=== PATIENT | female | born 1940 | race Caucasian/White ===

== ENCOUNTER 2017-12-20 15:05 | Inpatient (IN) | payer OTHER ==
[~2017-12-20] VITALS: Ht 162.6 cm; Wt 66.0 kg
[2017-12-20 22:03] VITALS: BP 185/81; PULSE 90; TEMP 36.5; O2SAT 97; Ht 162.6 cm; Wt 66.0 kg
[2017-12-20] MEDS ORDERED: AMLO10TA3 PO (22:43)
[2017-12-20] MEDS ORDERED: TIMO-31 OP (22:43)
[2017-12-20] MEDS ORDERED: ACET-1256 PO (22:43)
[2017-12-20] MEDS ORDERED: ARTI1SOL11 (22:43)
[2017-12-20] MEDS ORDERED: ONDANSETRON INJ 2 MG/ML 2 ML VIAL IV PRN (23:00)
[2017-12-20] MEDS ORDERED: ACETAMINOPHEN 325 MG TAB PO PRN (23:00)
[2017-12-20] MEDS ORDERED: PATIENT'S ALLERGY INFO NEEDS ENTERED SCH (23:15)
--- NOTE | 2017-12-20 23:35 | History and Physical ---
History & Physical Date & Time of Service: Dec 20, 2017 at 22:57 Chief Complaint: Progressive Symptoms For Possible Stroke Primary Care Physician: Dash Fernández M.D. History of Present Illness Source: patient, family The patient is a 77-year-old female with a past medical history of hypertension , cancer of the left eye, and glaucoma that presents a transfer from [facility] with a 3-day history of numbness and tingling. The patient states that evening before going to sleep she had tingling at the tips of the second to fifth digits of the left hand. She was awoken from her sleep by her dog that evening at which point she all of a sudden noticed she was also having tingling over her left wrist at the palmar side. Thursday morning she went to the emergency department where she was evaluated with a CT of the head and neck. Her CT head showed no acute intracranial abnormalities, and the CT of the neck danish some degenerative disc changes in addition to canal narrowing at the C5-C6 region. The patient was discharged from the ED with instruction to follow-up with her PCP. The patient states that today her numbness and tingling began to spread across her chest on the left side below her breast and down her left leg. She was reevaluated at [facility] with a CT Head that showed no acute intracranial abnormalities and was transferred to [facility]. 6 weeks ago the patient was treated for shingles along the left side that had an eruption at the left flank region although presented with intermittent burning. The patient was treated with a course of valacyclovir and given a prescription for Lyrica. When beginning the Lyrica the patient had an episode of vertigo and discontinued it thereafter. She states that she has been having no numbness that is worse over the area that had a shingles outbreak. This numbness is descending down the left side of her trunk to the hip. She was also having some mild numbness that goes down her left leg and is worse over the left knee. She denies any tingling at this area though and it is only numbness. The patient denies any Chest pain, shortness of breath, headache, vision changes, photophobia, aura, weakness, fatigue, or any other acute symptoms. Past Medical/Surgical History Medical Problems: (1) Left sided numbness (2) Numbness and tingling of left upper and lower extremity Family History Noncontributory Social History Smoking Status: Never Smoker Smokeless Tobacco Use: No Alcohol Use: socially Drug Use: none Occupational Status: retired Immunizations History of Influenza Vaccine: Unknown History of Tetanus Vaccine?: Unknown History of Pneumococcal: Unknown History of Hepatitis B Vaccine: Unknown Allergies Coded Allergies: Latex1 -Allergic Contact Dermititis (Verified Allergy, Intermediate, RASH , 12/20/17) Penicillins (Verified Allergy, Unknown, RASH, 12/20/17) Since a child, is unsure. Thinks it may have been a rash. Uncoded Allergies: "Steroids" (Adverse Reaction, Severe, ANAPHYLAXIS, 12/20/17) Causes increase eye pressure Home Medications Scheduled Acetaminophen (Tylenol), 2 TAB PO Q6 Amlodipine (Norvasc), 10 MG PO DAILY Timolol Maleate (Ophth) (Timoptic), 1 DROPS OP BID Miscellaneous Medications Artificial Tear Solution (Genteal Tears Liquid Drop 0.1-0.2-0.3 %) Review of Systems Constitutional: No fever, No chills, No sweats, No weight loss, No weakness Eyes: No worsening of vision, No redness, No diplopia Respiratory: No cough, No sputum, No wheezing, No shortness of breath, No dyspnea on exertion Cardiovascular: No chest pain, No edema, No palpitations Abdomen: No pain, No nausea, No vomiting, No diarrhea, No constipation Genitourinary - Female: No dysuria, No urinary frequency, No urinary urgency Neurologic: + numbness/tingling, No memory loss, No paralysis, No weakness, No vertigo, No balance problems Endocrine: No fatigue, No excessive thirst Integumentary: + rash (Left flank, shingles lesions that have dried), No itch Physical Exam Vital Signs Date Time Temp Pulse Resp B/P (MAP) Pulse Ox O2 Delivery O2 Flow Rate FiO2 12/20/17 22:03 36.5 90 16 185/81 97 Room Air General Appearance: WD/WN, no apparent distress Head: normocephalic, atraumatic Eyes: normal inspection, sclerae normal Neck: supple, no carotid bruits Respiratory/Chest: chest non-tender, lungs clear, normal breath sounds Cardiovascular: regular rate, rhythm, no edema, no gallop Abdomen/GI: normal bowel sounds, non tender, soft Back: normal inspection, no CVA tenderness, + pertinent finding (Left flank dried eruptions with no vesicles. 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, no motor/sensory deficits, alert, normal mood/affect, normal reflexes, oriented x 3, + pertinent finding (Normal Field of View, PERRL, CN 2-12 grossly intact, Strength 5/5 in UE and LE, Sensation to light touch and temperature grossly intact, finger to nose and heel to sepulveda grossly normal, vision intact) Impression Assessment and Plan The patient is a 77-year-old female with a past medical history of hypertension , cancer of the left eye, and glaucoma that presents a transfer from [facility] with a 3-day history of numbness and tingling Left Sided Numbness and Tingling - CT Head: No acute intracranial abnormalities - MRI Brain Combo ordered -Assess circulation with either CTA or MRA - Neurology consult - Possibly secondary to degenerative disc changes in the neck seen on CT Neck performed at [facility] - CBC, BMP, Lyme, and Troponin labs ordered Hypertension - Continue home Amlodipine Glaucoma - Continue home Timolol drops DVT - SCDs Code Status - Full Resuscitation Attending addendum: I have physically seen this patient, have supervised the medical residents activities, and agree with the H&P unless as otherwise noted. Assessment and Plan: Progressive left-sided numbness and tingling. The patient will be admitted to telemetry for serial cardiac enzymes, serial EKG's, cardiac rhythm monitoring and a 2-D echocardiogram with Dopplers.. CT head negative for acute event. Follow ischemic stroke/TIA protocol. Order MRI brain, MRA head and neck. Consult PT/OT/speech/neurology. Hypertension--continue amlodipine with hold parameters. Glaucoma continue timolol. Remainder of orders and notations as noted above. Advanced Directives Existing Living Will: Yes Existing Power of Flake Miller Helper: Yes Resuscitation Status Full Code VTE Prophylaxis Will order VTE Prophylaxis: Yes Social Service Consult None Apply Resident Tracking Resident Involvement: Resident Care Provided Care Provided: Adult Hospital Medicine
[2017-12-20 23:40] VITALS: BP 150/74; PULSE 87; TEMP 36.5; O2SAT 97
[2017-12-20 23:49] LABS: BASO % 0.2 %; BASO ABS # 0.02 K/uL (0-0.2); EOS % 2.9 %; EOS ABS # 0.26 K/uL (0-0.5); HEMOGLOBIN 14.4 g/dL (12.0-16.0); IG# 0.01 K/uL (0.00-0.02); LYMPH % 16.1 %; LYMPH ABS # 1.45 K/uL (1.2-3.4); MEAN CELL VOLUME 86.4 fL (80-100); MEAN CORPUSCULAR HEMOGLOBIN 28.3 pg (25-34); MEAN CORPUSCULAR HGB CONC 32.7 g/dl (32-36); MEAN PLATELET VOLUME 9.5 fL (7.4-10.4); MONO % 10.2 %; MONO ABS # 0.92 K/uL (0.11-0.59); NEUT % 70.5 %; NEUT ABS # 6.33 K/uL (1.4-6.5); PLATELET COUNT 210 K/uL (130-400); RED CELL DISTRIBUTION WIDTH CV 13.9 % (11.5-14.5); RED CELL DISTRIBUTION WIDTH SD 43.6 fL (36.4-46.3); WHITE BLOOD COUNT 8.99 K/uL (4.8-10.8)
[2017-12-21] VITALS (7 sets, daily range): BP systolic 107–155; BP diastolic 65–88; PULSE 76–87; TEMP 36.6–37; O2SAT 92–98
[2017-12-21 00:14] LABS: BLOOD UREA NITROGEN 12 mg/dl (7-18); CALCIUM 8.9 mg/dl (8.5-10.1); CARBON DIOXIDE 31 mmol/L (21-32); CREATININE 0.66 mg/dl (0.60-1.20); GLUCOSE 146 mg/dl (70-99); POTASSIUM 3.1 mmol/L (3.5-5.1); SODIUM 141 mmol/L (136-145)
[2017-12-21] MEDS ORDERED: POTASSIUM CHLORIDE 20 MEQ TABCR PO STA (00:24)
[2017-12-21] MEDS ORDERED: LORAZEPAM 1 MG TAB PO SCH (05:45)
[2017-12-21] MEDS ORDERED: LORAZEPAM 1 MG TAB ONE (05:47)
--- NOTE | 2017-12-21 06:51 | Family Medicine Progress Note ---
Progress Note Date of Service Dec 21, 2017. Subjective Pt evaluation today including: conversation w/ patient, physical exam, chart review, lab review, review of studies Pain: None PO Intake: Good Mrs. 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 She was treated 6 weeks ago for Shingles with Valcyclovir & Lyrica. She reports she feels well today. Her numbness is 'like you slapped something hard and feels kind of weird after.' She is experiencing numbness in the L flank , L foot, L leg, and L hand. Her arm is not numb today. Her R side is unaffected. She denies any loss of strength, denies pain. She has a well healing rash on her L flank from her recent singles episode, but notes that this area feels different than the numbness she is experiencing in her hand, L flank, and L leg. She is eating well today. She is having coffee at time of exam. No nausea/ vomiting. Denies fever, chills, rash, recent illness. She endorses some areas of focal blindness in her L field of view since her orbit surgery. She endorses horizontal diplopia on L gaze. Some decreased visual acuity unchanged since her surgery. No other change in sensation. Constitutional: No fever, No chills, No weakness, No fatigue Eyes: + worsening of vision, + diplopia, No eye pain Respiratory: No cough, No shortness of breath Cardiovascular: No chest pain Musculoskeletal: No joint pain, No muscle pain, No swelling Neurologic: + numbness/tingling, + vertigo, No paralysis, No weakness, No balance problems Skin: No rash, No itch Medications Current Inpatient Medications Medications (Trade) Dose Ordered Sig/Agueda Route Start Time Stop Time Status Last Admin Dose Admin Acetaminophen (Tylenol Tab) 650 mg Q4H PRN PO 12/20/17 23:00 01/19/18 22:59 Ondansetron HCl (Zofran Inj) 4 mg Q6H PRN IV 12/20/17 23:00 01/19/18 22:59 Amlodipine Besylate (Norvasc Tab) 10 mg DAILY PO 8/13/18 09:00 01/20/18 08:59 12/21/17 08:12 10 MG Timolol Maleate (Timoptic 0.5% Oph Soln) 1 drops BID OP 12/21/17 09:00 01/20/18 08:59 12/21/17 08:12 1 DROPS Lorazepam (Ativan Tab) 1 mg TODAY@0545 PO 12/21/17 05:45 12/21/17 12:00 Objective Vital Signs Date Time Temp Pulse Resp B/P (MAP) Pulse Ox O2 Delivery O2 Flow Rate FiO2 12/21/17 08:00 Room Air 12/21/17 07:03 36.6 76 18 121/65 (83) 96 Room Air 12/21/17 04:06 36.6 87 18 123/78 (93) 97 Room Air 12/21/17 04:00 Room Air 12/20/17 23:40 36.5 87 18 150/74 (99) 97 Room Air 12/20/17 22:03 36.5 90 16 185/81 97 Room Air Physical Exam General Appearance: no apparent distress Eyes: + pertinent finding (Eyes: Pupils unequal, L ~3mm R ~2mm, equally responsive to light and accommodation. Mild L esotropia with accentuates with leftward gaze. EoM intact without nystagmus. Sclera normal without injection and jaundice.) Neck: supple, no JVD, no carotid bruits, trachea midline Respiratory/Chest: chest non-tender, lungs clear, normal breath sounds, no respiratory distress, no accessory muscle use Cardiovascular: regular rate, rhythm, no gallop, no JVD, no murmur Abdomen: normal bowel sounds, non tender, soft Extremities: normal range of motion, normal inspection Neurologic/Psychiatric: + pertinent finding (Elbow flexion/extension, knee flexion/extension, plantarflexion, dorsiflexion, hip flexion, shoulder flexion/ extension/internal rotation/external rotation 5/5 strength. Sensation intact to soft touch via bristle brush in all distal extremities although qualitatively different in the L leg, L hand, and L lower torsa with overall L<R per pt.) Skin: warm/dry, + rash, + pertinent finding (Skin: Well healing erythematous rash present on L flank in a dermatomal distribution, no crust, scale, vesicles , or lesions present. ) Notes: Laboratory Results 12/21/17 09:41 Red Blood Count 5.37, Mean Corpuscular Volume 86.8, Mean Corpuscular Hemoglobin 28.5, Mean Corpuscular Hemoglobin Concent 32.8, Mean Platelet Volume 9.8, Neutrophils (%) (Auto) 73.1, Lymphocytes (%) (Auto) 16.2, Monocytes (%) (Auto) 8.1, Eosinophils (%) (Auto) 2.1, Basophils (%) (Auto) 0.4, Neutrophils # (Auto) 5.88, Lymphocytes # (Auto) 1.30, Monocytes # (Auto) 0.65, Eosinophils # (Auto) 0.17, Basophils # (Auto) 0.03 12/21/17 09:41 Test 12/20/17 23:33 12/21/17 09:41 12/21/17 09:46 Troponin I < 0.015 ng/ml (0-0.045) Lyme Disease IgG Antibody NEG (NEG) Lyme Disease IgM Antibody NEG (NEG) White Blood Count 8.04 K/uL (4.8-10.8) Red Blood Count 5.37 M/uL (4.2-5.4) Hemoglobin 15.3 g/dL (12.0-16.0) Hematocrit 46.6 % (37-47) Mean Corpuscular Volume 86.8 fL (80-100) Mean Corpuscular Hemoglobin 28.5 pg (25-34) Mean Corpuscular Hemoglobin Concent 32.8 g/dl (32-36) Platelet Count 237 K/uL (130-400) Mean Platelet Volume 9.8 fL (7.4-10.4) Neutrophils (%) (Auto) 73.1 % Lymphocytes (%) (Auto) 16.2 % Monocytes (%) (Auto) 8.1 % Eosinophils (%) (Auto) 2.1 % Basophils (%) (Auto) 0.4 % Neutrophils # (Auto) 5.88 K/uL (1.4-6.5) Lymphocytes # (Auto) 1.30 K/uL (1.2-3.4) Monocytes # (Auto) 0.65 K/uL (0.11-0.59) Eosinophils # (Auto) 0.17 K/uL (0-0.5) Basophils # (Auto) 0.03 K/uL (0-0.2) RDW Standard Deviation 44.5 fL (36.4-46.3) RDW Coefficient of Variation 14.0 % (11.5-14.5) Immature Granulocyte % (Auto) 0.1 % Immature Granulocyte # (Auto) 0.01 K/uL (0.00-0.02) Anion Gap 7.0 mmol/L (3-11) Est Creatinine Clear Calc Drug Dose 69.9 ml/min Estimated GFR () 99.9 Estimated GFR (Non- 86.2 BUN/Creatinine Ratio 25.7 (10-20) Calcium Level 9.3 mg/dl (8.5-10.1) Erythrocyte Sedimentation Rate 18 mm/hr (0-21) Estimated Average Glucose 123 mg/dl Hemoglobin A1c 5.9 % (4.5-5.6) Vitamin B12 Level 1131 pg/mL (211-911) Thyroid Stimulating Hormone (TSH) 1.480 uIu/ml (0.300-4.500) Assessment and Plan Ashlyn Ag is a 77yo F with PMHx of shingles admitted for L sided parasthesia of the hand, arm, lower left flank, and entire lower left extremity. Her recent CT and MRI-Brain showed no acute pathology. On physical exam she is able to discriminate soft touch, temperature, and sharp touch in the affected area with her eyes closed although she reports the her sensation in the L vs R is qualitatively different. L Parasthesias - CT-H and MRI-B revealing for no acute pathology. - Some spinal narrowing at ~C4 on [facility] in [facility] - Lyme negative - Troponin negative - B12, CBC, A1C, TSH, ESR, fasting glucose ordered - MRI-C spine w & w/o contrast ordered. Will not be able to be done until at least 12 hours after MRI-B due to residual contrast. Scheduled for tonight after 1900hrs. - If the above tests are normal, pursue EMG and nerve conduction studies on an outpatient basis per neuro recommendation. Appreciate recs. Glaucoma - [employer]ESS [employer] Timolol drops Hypertension - [employer]ESS [employer] Amlodipine 10mg PO daily DVT Prophylaxsis - SCDs Code Status: Full Disposition: Transfer to Med-Surg. Resident Physician Supervision Note: I was present with Dr. Addison during the history and exam. I discussed the case with the resident and agree with the findings and plan as documented in the note. I also discussed the case with neurology. Documented By: Yoel Antoine Continued [facility] stay due to: other (MRI) Discharge planning: home Resident Tracking Resident Involvement: Resident Care Provided Care Provided: Adult Hospital Medicine
--- NOTE | 2017-12-21 07:16 | DIAGNOSTIC IMAGING REPORT ---
BRAIN COMBO CLINICAL HISTORY: 77 years-old Female presenting with Left sided numbness and tingling since , vertigo for 4 weeks, ongoing shingles. TECHNIQUE: Multisequence, multiplanar MR imaging of the brain was performed before and after the administration of intravenous contrast. IV contrast: 6.5 mL of Gadavist. COMPARISON: Noncontrast CT head performed on 12/20/2017 and outside hospital. FINDINGS: Localizer images: Unremarkable. Ventricles and sulci normal in size. Periventricular and subcortical white matter T2/FLAIR hyperintensity, nonspecific but likely indicative of chronic small vessel ischemic change. No mass effect or midline shift. No restricted diffusion to suggest acute ischemia. No hemorrhage. No extra-axial fluid collection. Increased signal intensity within the left internal jugular vein and sigmoid sinus on T2-weighted imaging, most likely slow flow as contrast is noted within this vein on postcontrast imaging. Remainder of the T2 skull base flow voids preserved. No abnormal parenchymal enhancement. Bone marrow signal intensity within the calvarium within normal limits. Trace fluid in right mastoid air cells. T2 hypointense, T1 isointense peripheral lobulation of the inferior lateral left lobe (series 6 image 10; series 8 image 3; series 7 image 10). This may minimally enhance. IMPRESSION: 1. No acute intracranial pathology. No abnormal enhancement. 2. Chronic small vessel ischemic change. 3. Indeterminate left globe lobular peripheral soft tissue. This may represent choroidal or retinal detachment, with less likely diagnostic considerations including metastases. Direct for endoscopic visualization and potential contrast-enhanced MR of the orbit to be considered. Primary care physician (PCP) and/or surgical follow-up recommended until clinical, surgical, or pathologic diagnosis established. The report will be called/faxed according to standard departmental protocol. Electronically signed by: Vikram Araiza M.D. 12/21/2017 7:14 AM Dictated Date/Time: 12/21/2017 6:57 AM
[2017-12-21] MEDS: AMLODIPINE BESYLATE 5 MG TAB PO SCH (08:12)
[2017-12-21] MEDS: TIMOLOL MALEATE 0.5% OP SOLN 5 ML BTL OP SCH ×2 (08:12→20:32)
--- NOTE | 2017-12-21 08:47 | Neurology Consultation ---
Neurology Consultation Date of Consultation: Dec 21, 2017. Attending Physician: Brett Moya M.D. Primary Care Physician: Dash Fernández M.D. Reason for Consultation: Patient is a 77-year-old, was asked to see the request of doctors Dev and Nita, for neurologic evaluation regarding progressive numbness. History of Present Illness Source: patient, caregiver, hospital records This patient has a longstanding history of hypertension. She did have some diabetes in the past and was on Mestinon but is not on this currently in claims her sugar is doing well. She has no heart issues or previous stroke. About 6 weeks ago or so she had shingles along her left flank in the strip from the lumbar spine around to the midline on the abdomen. The vesicles were small and in patches/groups long that strip. She was put on valacyclovir. She had some burning pain particularly if touched in the areas of the patches with some numbness but this is much better. She tried Lyrica but gave her vertigo so she stopped it. She is on no medication currently for this mild post herpetic neuralgia and numbness and is doing fine. Is getting progressively less over time. In the evening of December 17, she noted some tingling in the 5th and 4th fingers of the left hand she thought she may be had strained or irritated this and went to bed. When she woke up on December 18, the left hand issue was still present and by the end of the day it involved the ulnar palm to the wrist. No also spread to the 3rd and 2nd fingers. By the end of the day she also noted numbness (without pain or tingling) in the left leg on the top of the thigh and inner portion of the leg. It went from the hip to just below the knee. That afternoon she went to the [facility] emergency room and a CT scan of the head was unremarkable. CT scan of the cervical spine shows some degenerative changes particularly at C5-6. Patient had no radicular symptoms or neck pain. She had no low back pain. She was sent home from the emergency room and by that evening she noted numbness from her knee down to the top of her left foot. On December 19, she had no progression and had the same symptoms as when she went to bed the evening before. When she woke up on December 20 she felt that there was some dysesthesias along her ulnar forearm and felt that she had to go to the emergency room. She was then evaluated at [facility] and another CT scan of the head was unremarkable. She noted numbness along the left flank. She was transferred to our institution and at 10:03 p.m. zero three hours, temperature was 36.5, pulse 90 and regular, respiratory rate 16, blood pressure 185/81, and O2 saturation 97%. Her neurologic examination was described as unremarkable although she had some subjective numbness in the left arm and leg. CBC was unremarkable Chem profile revealed a mildly low potassium and a glucose of 146. Lyme antibody titer was unremarkable. MRI of the brain revealed mild to moderate old small vessel ischemic changes of a scattered nonspecific nature. There was some mild generalized atrophy as well. There was some soft tissue findings in the left globe. This did not enhance. 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 Apparently she saw Dr. Boston in [place] who put in a radioactive patch for 3 days and then remove the patch. They feel that this choroidal melanoma is getting smaller. She is followed closely by Ophthalmology. Today, she feels no worse than yesterday and has no new issues. She does not feel ill and has no spine pain, balance issues, incontinence of urine, confusion , fatigue, speech issues, or new vision problems. 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 She does not consume alcohol. She had many jobs over the years but worked at [employer] on [address] [place] for 8 years and then [employer] bearings. She retired in 1998. She has 4 children ranging in age from 60-46, 11 grandchildren, and 8 great- grandchildren Smoking Status: Never smoker Smokeless Tobacco Use: No Alcohol Use: socially Drug Use: none Marital Status: Housing Status: lives alone Occupation Status: retired Allergies Coded Allergies: Latex1 -Allergic Contact Dermititis (Verified Allergy, Intermediate, RASH , 12/20/17) Penicillins (Verified Allergy, Unknown, RASH, 12/20/17) Since a child, is unsure. Thinks it may have been a rash. Uncoded Allergies: "Steroids" (Adverse Reaction, Severe, ANAPHYLAXIS, 12/20/17) Causes increase eye pressure Current Inpatient Medications Current Inpatient Medications Medications (Trade) Dose Ordered Sig/Agueda Route Start Time Stop Time Status Last Admin Dose Admin Acetaminophen (Tylenol Tab) 650 mg Q4H PRN PO 12/20/17 23:00 01/19/18 22:59 Ondansetron HCl (Zofran Inj) 4 mg Q6H PRN IV 12/20/17 23:00 01/19/18 22:59 Amlodipine Besylate (Norvasc Tab) 10 mg DAILY PO 12/21/17 09:00 01/20/18 08:59 Timolol Maleate (Timoptic 0.5% Oph Soln) 1 drops BID OP 12/21/17 09:00 01/20/18 08:59 Lorazepam (Ativan Tab) 1 mg TODAY@0545 PO 12/21/17 05:45 12/21/17 12:00 Review of Systems Constitutional: No fatigue Eyes: No worsening of vision, No diplopia ENT: No sore throat, No trouble swallowing Respiratory: No cough, No shortness of breath Cardiovascular: No chest pain, No palpitations Abdomen: No pain, No nausea Musculoskeletal: + joint pain, No muscle pain Genitourinary - Female: No dysuria, No urinary incontinence Neurologic: + numbness/tingling, No memory loss, No weakness, No vertigo, No balance problems Psychiatric: No depression symptoms, No anxiety Endocrine: No fatigue Hematologic / Lymphatic: No abnormal bleeding/bruising Integumentary: No rash Allergic / Immunologic: No hives Physical Exam Vital Signs (Past 24 Hrs): Date Time Temp Pulse Resp B/P (MAP) Pulse Ox O2 Delivery O2 Flow Rate FiO2 12/21/17 07:03 36.6 76 18 121/65 (83) 96 Room Air 12/21/17 04:06 36.6 87 18 123/78 (93) 97 Room Air 12/21/17 04:00 Room Air 12/20/17 23:40 36.5 87 18 150/74 (99) 97 Room Air 12/20/17 22:03 36.5 90 16 185/81 97 Room Air Patient is right-handed. The patient is awake and alert. Speech is normal without aphasia or dysarthria. Mentation and thought processes are intact with full orientation and normal fund of knowledge. Mood and affect are normal and appropriate. Appearance and grooming are normal. Long and short-term memory are intact. The discs are sharp with positive venous pulsations. There are no exudates, hemorrhages, or blood vessel changes seen. Pupils are 4mm bilaterally and reactive to light. Extraocular eye muscles are intact without nystagmus. Visual acuity and visual rice seem normal grossly to confrontation. There are no deficits to sensation of the face bilaterally. Corneal reflexes are positive bilaterally. Facial strength and symmetry is normal bilaterally. Hearing seems intact grossly to voice and finger rub. Palate moves well without asymmetry. There is normal sternocleidomastoid and trapezius strength bilaterally. Tongue is midline with good strength bilaterally. Neck is with full range of motion without discomfort. There are no cervical bruits. There are no cranial or ocular bruits. Heart is without murmur. Cervical, thoracic, and lumbar spine are nontender to palpation. Gait is normal. There is good arm swing, turn, stance, and balance. With outstretched arms there is no drift. There are no resting tremors. There is no ataxia with [id number] testing. The patient has very mild right greater than left action tremor bilaterally. There is good facility in the hands. There are no abnormal involuntary movements noted. Motor strength is 5/5 diffusely in the arms bilaterally including deltoids, biceps, brachioradialis, wrist flexors and extensors, director home, and intrinsic hand muscles. Motor strength is 5/5 diffusely in the legs bilaterally including hip flexors, quadriceps, hamstring, gastrocnemius, tibialis anterior, tibialis posterior, and peroneii muscles bilaterally. Toe extensors are normal and there is good bulk in the extensor digitorum brevis muscle bilaterally. The limbs have good tone without rigidity or spasticity, and there is no atrophy noted. Muscle bulk is normal, there is no tenderness, no myotonia noted to percussion, and no fasciculations seen. Sensory examination reveals some decreased sensation in the hand including all digits except the thumb on the left. This extends to the palm dorsally and ventrally. There is some dysesthesias along the ulnar forearm as well. The upper arm is spared. There is some numbness along the left trunk laterally and the left leg particularly medially and on the thigh. The left foot has some numbness. The right side is spared. Reflexes are 1/4 in the biceps, triceps, and quadriceps tendons bilaterally. Brachioradialis and Achilles tendon reflexes are absent bilaterally. Toes are downgoing with plantar stimulation bilaterally. Peripheral pulses are present and of normal quality distally in all four limbs. There is no peripheral edema noted. Laboratory Results Past 24 Hours: 12/20/17 23:33 Red Blood Count 5.09, Mean Corpuscular Volume 86.4, Mean Corpuscular Hemoglobin 28.3, Mean Corpuscular Hemoglobin Concent 32.7, Mean Platelet Volume 9.5, Neutrophils (%) (Auto) 70.5, Lymphocytes (%) (Auto) 16.1, Monocytes (%) (Auto) 10.2, Eosinophils (%) (Auto) 2.9, Basophils (%) (Auto) 0.2, Neutrophils # (Auto ) 6.33, Lymphocytes # (Auto) 1.45, Monocytes # (Auto) 0.92, Eosinophils # (Auto ) 0.26, Basophils # (Auto) 0.02 12/20/17 23:33 Test 12/20/17 23:33 White Blood Count 8.99 K/uL (4.8-10.8) Red Blood Count 5.09 M/uL (4.2-5.4) Hemoglobin 14.4 g/dL (12.0-16.0) Hematocrit 44.0 % (37-47) Mean Corpuscular Volume 86.4 fL (80-100) Mean Corpuscular Hemoglobin 28.3 pg (25-34) Mean Corpuscular Hemoglobin Concent 32.7 g/dl (32-36) Platelet Count 210 K/uL (130-400) Mean Platelet Volume 9.5 fL (7.4-10.4) Neutrophils (%) (Auto) 70.5 % Lymphocytes (%) (Auto) 16.1 % Monocytes (%) (Auto) 10.2 % Eosinophils (%) (Auto) 2.9 % Basophils (%) (Auto) 0.2 % Neutrophils # (Auto) 6.33 K/uL (1.4-6.5) Lymphocytes # (Auto) 1.45 K/uL (1.2-3.4) Monocytes # (Auto) 0.92 K/uL (0.11-0.59) Eosinophils # (Auto) 0.26 K/uL (0-0.5) Basophils # (Auto) 0.02 K/uL (0-0.2) RDW Standard Deviation 43.6 fL (36.4-46.3) RDW Coefficient of Variation 13.9 % (11.5-14.5) Immature Granulocyte % (Auto) 0.1 % Immature Granulocyte # (Auto) 0.01 K/uL (0.00-0.02) Anion Gap 7.0 mmol/L (3-11) Est Creatinine Clear Calc Drug Dose 64.9 ml/min Estimated GFR () 97.4 Estimated GFR (Non- 84.0 BUN/Creatinine Ratio 18.2 (10-20) Calcium Level 8.9 mg/dl (8.5-10.1) Troponin I < 0.015 ng/ml (0-0.045) Lyme Disease IgG Antibody NEG (NEG) Lyme Disease IgM Antibody NEG (NEG) Imaging BRAIN COMBO CLINICAL HISTORY: 77 years-old Female presenting with Left sided numbness and tingling since , vertigo for 4 weeks, ongoing shingles. TECHNIQUE: Multisequence, multiplanar MR imaging of the brain was performed before and after the administration of intravenous contrast. IV contrast: 6.5 mL of Gadavist. COMPARISON: Noncontrast CT head performed on 12/20/2017 and outside hospital. FINDINGS: Localizer images: Unremarkable. Ventricles and sulci normal in size. Periventricular and subcortical white matter T2/FLAIR hyperintensity, nonspecific but likely indicative of chronic small vessel ischemic change. No mass effect or midline shift. No restricted diffusion to suggest acute ischemia. No hemorrhage. No extra-axial fluid collection. Increased signal intensity within the left internal jugular vein and sigmoid sinus on T2-weighted imaging, most likely slow flow as contrast is noted within this vein on postcontrast imaging. Remainder of the T2 skull base flow voids preserved. No abnormal parenchymal enhancement. Bone marrow signal intensity within the calvarium within normal limits. Trace fluid in right mastoid air cells. T2 hypointense, T1 isointense peripheral lobulation of the inferior lateral left lobe (series 6 image 10; series 8 image 3; series 7 image 10). This may minimally enhance. IMPRESSION: 1. No acute intracranial pathology. No abnormal enhancement. 2. Chronic small vessel ischemic change. 3. Indeterminate left globe lobular peripheral soft tissue. This may represent choroidal or retinal detachment, with less likely diagnostic considerations including metastases. Direct for endoscopic visualization and potential contrast-enhanced MR of the orbit to be considered. Primary care physician (PCP) and/or surgical follow-up recommended until clinical, surgical, or pathologic diagnosis established. The report will be called/faxed according to standard departmental protocol. Electronically signed by: Vikram Araiza M.D. 12/21/2017 7:14 AM Impression 1. Recent onset, somewhat progressive numbness and tingling over the last 4 days involving the left hand (ulnar side greater than medial side) into the ulnar forearm , left trunk laterally, and left lower extremity from hip to foot a patchy distribution Etiology of this numbness is not readily apparent but I suspect peripheral origin. She has known osteoarthritis of the spine and knees and I wonder about radiculopathy. Although there are no signs of myelopathy on examination I cannot exclude a cervical spine problem causing this issue. She has absent reflexes distally and if she has a peripheral neuropathy, this could mask upper motor neuron signs. There is no evidence for a stroke on MRI and her history and neurologic exam do not fit this. MRI shows no tumor as well. 2. 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 3. Post T7/T8 shingles with some minimal post herpetic neuralgia She is on no medication and her symptoms are fading with time. 4. Essential tremor She has a very mild, right greater than left, essential tremor. She has no evidence of Parkinson's disease 5. Absent reflexes distally. This may indicate a peripheral neuropathy. If so, the etiology is not readily apparent although diabetic is possible. She has had some elevated glucose in the past. Plan 1. MRI of the cervical spine with without contrast. 2. Consider EMG and nerve conduction studies of the left arm and leg to be done as an outpatient 3. Check hemoglobin A1c, fasting blood sugar, B12, TSH, and ESR. 4. There is no need for a "stroke workup" 5. Additional recommendations will be made depending on her clinical course and the above tests. Overall, I spent a total of 75 minutes with this case including records review, review of MRIs, direct evaluation the patient at bedside, and discussion of the case with the patient herself at bedside, clinical staff, and Dr. Antoine, including differential diagnosis and treatment options.
[2017-12-21 10:02] LABS: BASO % 0.4 %; BASO ABS # 0.03 K/uL (0-0.2); EOS % 2.1 %; EOS ABS # 0.17 K/uL (0-0.5); HEMATOCRIT 46.6 % (37-47); HEMOGLOBIN 15.3 g/dL (12.0-16.0); IG# 0.01 K/uL (0.00-0.02); LYMPH % 16.2 %; MEAN CELL VOLUME 86.8 fL (80-100); MEAN CORPUSCULAR HEMOGLOBIN 28.5 pg (25-34); MEAN CORPUSCULAR HGB CONC 32.8 g/dl (32-36); MEAN PLATELET VOLUME 9.8 fL (7.4-10.4); MONO % 8.1 %; MONO ABS # 0.65 K/uL (0.11-0.59); NEUT % 73.1 %; NEUT ABS # 5.88 K/uL (1.4-6.5); PLATELET COUNT 237 K/uL (130-400); RED CELL DISTRIBUTION WIDTH SD 44.5 fL (36.4-46.3); WHITE BLOOD COUNT 8.04 K/uL (4.8-10.8)
[2017-12-21 10:22] LABS: HEMOGLOBIN A1C 5.9 % (4.5-5.6)
[2017-12-21 10:31] LABS: CALCIUM 9.3 mg/dl (8.5-10.1); CREATININE 0.61 mg/dl (0.60-1.20); POTASSIUM 3.9 mmol/L (3.5-5.1)
[2017-12-21] MEDS ORDERED: ARTIFICIAL TEARS OP SOLN OP PRN (17:15)
[2017-12-21] MEDS ORDERED: GADAVIST IV PRN (22:00)
--- NOTE | 2017-12-21 23:26 | DIAGNOSTIC IMAGING REPORT ---
CERVICAL SPINE MRI WITH AND WITHOUT CONTRAST HISTORY: L paresthesia spreading from hand to flank and LLE TECHNIQUE: Multiplanar multisequence MRI of the cervical spine was performed both before and after the use of intravenous contrast. COMPARISON STUDY: Outside hospital cervical spine CT 12/18/2017. FINDINGS: No fracture or subluxation within the cervical spine. Prevertebral soft tissues and the C1-C2 interval are intact. Subcentimeter hemangiomas at C7 and T3. The visualized posterior fossa is unremarkable. The cervical spinal cord demonstrates a normal course, caliber, and signal intensity. No abnormal enhancement within the cervical spine. Mild disc space narrowing at C4-C5 and C5-C6. C2-C3: No significant central canal or neural foraminal narrowing. C3-C4: Small broad-based posterior disc bulge without significant central canal or right-sided neural foraminal narrowing. Mild left-sided neural foraminal narrowing.. C4-C5: Small broad-based posterior disc bulge which abuts but does not deform the anterior cord. No significant neural foraminal narrowing. C5-C6: Small broad-based posterior disc bulge which abuts but does not deform the anterior cord. Mild right-sided neural foraminal narrowing. No significant left-sided neural foraminal narrowing. C6-C7: No significant central canal or neural foraminal narrowing. C7-T1: No significant central canal or neural foraminal narrowing. IMPRESSION: 1. Mild degenerative changes within the mid cervical spine as described above. 2. No abnormal enhancement. 3. No fracture or subluxation. Electronically signed by: Sandeep Bernal M.D. 12/21/2017 11:24 PM Dictated Date/Time: 12/21/2017 11:17 PM
--- NOTE | 2017-12-22 06:40 | Family Medicine Progress Note ---
Progress Note Date of Service Dec 22, 2017.
[2017-12-22 07:26] VITALS: BP 132/54; PULSE 72; TEMP 36.6; O2SAT 98
[2017-12-22] MEDS: TIMOLOL MALEATE 0.5% OP SOLN 5 ML BTL OP SCH (08:05)
[2017-12-22] MEDS: AMLODIPINE BESYLATE 5 MG TAB PO SCH (08:06)
--- NOTE | 2017-12-22 11:00 | Neurology Progress Notes ---
Neurology Progress Note Date of Service Dec 22, 2017. Subjective The patient has a same numbness/dysesthesias in her left upper extremity as per yesterday. It is the same in her left lower extremity as well. She has less numbness and dysesthesias on her left flank which is an improvement from yesterday. She has no pain or headache or other new symptoms. MRI of the cervical spine showed some diffuse narrowing due to disc in bone at multiple levels but no cord impingement or significant spinal stenosis was seen. I reviewed these films. Blood pressure is somewhat low today. Objective Date Time Temp Pulse Resp B/P (MAP) Pulse Ox O2 Delivery O2 Flow Rate FiO2 12/22/17 08:45 Room Air 12/22/17 07:26 36.6 72 18 132/54 (80) 98 Room Air 12/22/17 00:00 Room Air 12/21/17 23:08 36.7 82 18 107/65 (79) 98 Room Air 12/21/17 19:39 36.7 82 18 155/88 (110) 98 Room Air 12/21/17 18:43 36.8 82 18 96 12/21/17 15:30 36.8 82 18 122/72 (89) 96 Room Air 12/21/17 11:30 37.0 86 20 135/77 (96) 92 Room Air Imaging: CERVICAL SPINE MRI WITH AND WITHOUT CONTRAST HISTORY: L paresthesia spreading from hand to flank and LLE TECHNIQUE: Multiplanar multisequence MRI of the cervical spine was performed both before and after the use of intravenous contrast. COMPARISON STUDY: Outside hospital cervical spine CT 12/18/2017. FINDINGS: No fracture or subluxation within the cervical spine. Prevertebral soft tissues and the C1-C2 interval are intact. Subcentimeter hemangiomas at C7 and T3. The visualized posterior fossa is unremarkable. The cervical spinal cord demonstrates a normal course, caliber, and signal intensity. No abnormal enhancement within the cervical spine. Mild disc space narrowing at C4-C5 and C5-C6. C2-C3: No significant central canal or neural foraminal narrowing. C3-C4: Small broad-based posterior disc bulge without significant central canal or right-sided neural foraminal narrowing. Mild left-sided neural foraminal narrowing.. C4-C5: Small broad-based posterior disc bulge which abuts but does not deform the anterior cord. No significant neural foraminal narrowing. C5-C6: Small broad-based posterior disc bulge which abuts but does not deform the anterior cord. Mild right-sided neural foraminal narrowing. No significant left-sided neural foraminal narrowing. C6-C7: No significant central canal or neural foraminal narrowing. C7-T1: No significant central canal or neural foraminal narrowing. IMPRESSION: 1. Mild degenerative changes within the mid cervical spine as described above. 2. No abnormal enhancement. 3. No fracture or subluxation. Electronically signed by: Sandeep Bernal M.D. 12/21/2017 11:24 PM Exam: Patient is awake and alert. Her speech is without aphasia or dysarthria. Mood and affect are normal appropriate. Thought processes are intact with good long and short-term memory. Extraocular eye muscles are intact without nystagmus. There is no facial droop. Tongue is midline. Coordination is normal in the arms. Strength is symmetrical in all limbs. Stance is normal sitting up in bed. Current Inpatient Medications Medications (Trade) Dose Ordered Sig/Agueda Route Start Time Stop Time Status Last Admin Dose Admin Acetaminophen (Tylenol Tab) 650 mg Q4H PRN PO 12/20/17 23:00 01/19/18 22:59 Ondansetron HCl (Zofran Inj) 4 mg Q6H PRN IV 12/20/17 23:00 01/19/18 22:59 Amlodipine Besylate (Norvasc Tab) 10 mg DAILY PO 12/21/17 09:00 01/20/18 08:59 12/22/17 08:06 10 MG Timolol Maleate (Timoptic 0.5% Oph Soln) 1 drops BID OP 12/21/17 09:00 01/20/18 08:59 12/22/17 08:05 1 DROPS Artificial Tears (Artificial Tears) 1 drops PRN PRN OP 12/21/17 17:15 01/20/18 17:14 Gadobutrol (Gadavist) 6.5 mmol UD PRN IV 12/21/17 22:00 12/25/17 21:59 Impression 1. Recent onset, somewhat progressive, numbness and tingling over the last 4 days involving the left hand (ulnar side greater than medial side) into the ulnar forearm , left trunk laterally, and left lower extremity from hip to foot a patchy distribution The arm and leg are stable today but she has less dysesthesias on her trunk. Etiology of this numbness is not readily apparent but I suspect peripheral origin. She has known osteoarthritis of the spine and knees and I wonder about radiculopathy. MRI of the cervical spine does show diffuse stenosis from disc in bone without cord impingement or a surgical lesion. Therefore, I doubt myelopathy. There is no evidence for a stroke on MRI and her history and neurologic exam do not fit this. MRI shows no tumor as well. 2. 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 3. Post T7/T8 shingles with some minimal post herpetic neuralgia She is on no medication and her symptoms are fading with time. 4. Essential tremor She has a very mild, right greater than left, essential tremor. She has no evidence of Parkinson's disease 5. Absent reflexes distally. This may indicate a peripheral neuropathy. If so, the etiology is not readily apparent although diabetic is possible. She has had some elevated glucose in the past. Plan 1. As an outpatient, EMG and nerve conduction studies of the left arm and leg 2. I see no need for additional neurologic workup or treatment changes at this time. 3. The patient cannot take steroids because of her left eye problems. Another nonsteroidal anti-inflammatory agent could be considered to see if this helps her symptoms. Overall, I spent a total of 35 minutes with this case including records review, review of MRI films, direct evaluation the patient, and discussion of the diagnosis and treatment options with the patient, and Dr. Brodie abernathy
--- NOTE | 2017-12-22 13:50 | Discharge Summary ---
Discharge Summary Date of Service Dec 22, 2017. Discharge Summary Admission Date: Dec 20, 2017 at 22:56 Discharge Date: Dec 22, 2017 Discharge Disposition: Home Principal Diagnosis: L Sided Paresthesias Immunizations: Have You Had Influenza Vaccine: Unknown History of Tetanus Vaccine?: Unknown History of Pneumococcal: Unknown History of Hepatitis B Vaccine: Unknown Procedures: CERVICAL SPINE MRI WITH AND WITHOUT CONTRAST HISTORY: L paresthesia spreading from hand to flank and LLE TECHNIQUE: Multiplanar multisequence MRI of the cervical spine was performed both before and after the use of intravenous contrast. COMPARISON STUDY: Outside hospital cervical spine CT 12/18/2017. FINDINGS: No fracture or subluxation within the cervical spine. Prevertebral soft tissues and the C1-C2 interval are intact. Subcentimeter hemangiomas at C7 and T3. The visualized posterior fossa is unremarkable. The cervical spinal cord demonstrates a normal course, caliber, and signal intensity. No abnormal enhancement within the cervical spine. Mild disc space narrowing at C4-C5 and C5-C6. C2-C3: No significant central canal or neural foraminal narrowing. C3-C4: Small broad-based posterior disc bulge without significant central canal or right-sided neural foraminal narrowing. Mild left-sided neural foraminal narrowing.. C4-C5: Small broad-based posterior disc bulge which abuts but does not deform the anterior cord. No significant neural foraminal narrowing. C5-C6: Small broad-based posterior disc bulge which abuts but does not deform the anterior cord. Mild right-sided neural foraminal narrowing. No significant left-sided neural foraminal narrowing. C6-C7: No significant central canal or neural foraminal narrowing. C7-T1: No significant central canal or neural foraminal narrowing. IMPRESSION: 1. Mild degenerative changes within the mid cervical spine as described above. 2. No abnormal enhancement. 3. No fracture or subluxation. Electronically signed by: Sandeep Bernal M.D. 12/21/2017 11:24 PM Dictated Date/Time: 12/21/2017 11:17 PM BRAIN COMBO CLINICAL HISTORY: 77 years-old Female presenting with Left sided numbness and tingling since , vertigo for 4 weeks, ongoing shingles. TECHNIQUE: Multisequence, multiplanar MR imaging of the brain was performed before and after the administration of intravenous contrast. IV contrast: 6.5 mL of Gadavist. COMPARISON: Noncontrast CT head performed on 12/20/2017 and outside hospital. FINDINGS: Localizer images: Unremarkable. Ventricles and sulci normal in size. Periventricular and subcortical white matter T2/FLAIR hyperintensity, nonspecific but likely indicative of chronic small vessel ischemic change. No mass effect or midline shift. No restricted diffusion to suggest acute ischemia. No hemorrhage. No extra-axial fluid collection. Increased signal intensity within the left internal jugular vein and sigmoid sinus on T2-weighted imaging, most likely slow flow as contrast is noted within this vein on postcontrast imaging. Remainder of the T2 skull base flow voids preserved. No abnormal parenchymal enhancement. Bone marrow signal intensity within the calvarium within normal limits. Trace fluid in right mastoid air cells. T2 hypointense, T1 isointense peripheral lobulation of the inferior lateral left lobe (series 6 image 10; series 8 image 3; series 7 image 10). This may minimally enhance. IMPRESSION: 1. No acute intracranial pathology. No abnormal enhancement. 2. Chronic small vessel ischemic change. 3. Indeterminate left globe lobular peripheral soft tissue. This may represent choroidal or retinal detachment, with less likely diagnostic considerations including metastases. Direct for endoscopic visualization and potential contrast-enhanced MR of the orbit to be considered. Primary care physician (PCP) and/or surgical follow-up recommended until clinical, surgical, or pathologic diagnosis established. The report will be called/faxed according to standard departmental protocol. Electronically signed by: Vikram Araiza M.D. 12/21/2017 7:14 AM Dictated Date/Time: 12/21/2017 6:57 AM Consultations: Neurology Discharge Exam Review of Systems: Constitutional: No fever, No chills, No sweats, No weakness, No fatigue Eyes: + problem reported (some horizontal diplopia on left gaze. Decreased acuity following eye surgery at baseline, no recent change.), No worsening of vision, No eye pain ENT: No hearing loss, No nasal symptoms Respiratory: No cough, No wheezing, No shortness of breath, No dyspnea on exertion, No dyspnea at rest Cardiovascular: No chest pain, No edema, No palpitations Abdomen: No pain, No nausea, No vomiting, No diarrhea, No constipation Musculoskeletal: No joint pain, No muscle pain Genitourinary - Female: + urinary incontinence, + problem reported (mild post-void dribbling incontinence), No dysuria, No urinary frequency, No urinary urgency, No urinary retention Neurologic: + numbness/tingling, + problem reported (Numbness/tingling in L arm, left flank, L leg. No weakness or loss of strength.), No paralysis, No weakness, No vertigo, No balance problems Psychiatric: No depression symptoms Endocrine: No fatigue Integumentary: + rash, + problem reported (Healing rash from shingles 6 weeks prior to admit on L flank) Physical Exam: General Appearance: WD/WN, no apparent distress Eyes: + pertinent finding (Pupils unequal, L ~3mm R ~2mm at baseline, equally responsive to light and accommodation. Mild L esotropia with accentuates with leftward gaze. EoM intact without nystagmus. Sclera normal without injection and jaundice. Mild visual field cut to medial gaze of L eye. Otherwise without cuts/loss of vision.) ENT: hearing grossly normal Neck: supple, no adenopathy, no JVD, no carotid bruits, trachea midline Respiratory/Chest: chest non-tender, lungs clear, normal breath sounds, no respiratory distress, no accessory muscle use Cardiovascular: regular rate, rhythm, no edema, no gallop, no JVD, no murmur , normal peripheral pulses Abdomen / GI: normal bowel sounds, non tender, soft, no organomegaly Extremities: normal inspection, no calf tenderness, no pedal edema, normal range of motion Neurologic/Psychiatric: alert, normal mood/affect, oriented x 3, + pertinent finding (patellar DTR absent bilaterally. No clonus. Bicepts and achilles DTR 2+ bilat. Elbow flexion/extension, shoulder extension/flexion/ interal rotation/external rotation, hip flexion, knee flexion/extension, ankle plantarflexion/dorsiflexion all intact with 5/5 strength. Sensation intact to soft and sharp touch in distal extremeties with L arm, L flank, and L leg qualitatively different and 'number' per pt.) Skin: normal color, warm/dry, no rash Lymphatic: no adenopathy Hospital Course Ashlyn Ag is a 77 year old female with a PMHx of hypertension, melanoma of the L retina s/p radiation patch placement and removal, and glaucoma who presented as a transfer from [facility] with a 3 day history of left sided numbness and tingling in her hand, shoulder, lower torso, and leg. She had intact sensation to soft touch in all extremities bilaterally, but felt sensation was qualitatively different on the left side. She had an episode of shingles on her L flank 6 weeks prior to presentation which was well healing but also remained numb. Patellar DTRs were absent on physical exam, otherwise neuro and strength exams were intact. Outside head and neck CT showed no intracranial abnormalities with some degenerative changes unlikely to cause her presenting symptoms. MRI brain and cervical spine performed in house showed no acute pathology, no spinal changes, and some degenerative disc changes and foraminal narrowing unlikely to cause her symptoms. Neurology was consulted and felt the etiology was unclear, but likely peripheral in origin. B12, TSH, ESR, and HgA1C were drawn and felt to be noncontributory. She was determined to be in good health and safe for discharge with follow up to Neurology on an outpatient basis where she would likely have EMG studies performed. Dosing with a Medrol pack was discussed, but due to her glaucoma and rapid increase in intraocular pressures following steroid treatment in the past steroid treatment was deferred. Resident Physician Supervision Note: I was present with the resident physician during the history and exam. I discussed the case with the resident and agree with the findings and plan as documented in the note. I also discussed the case with neurology. Given the patient's stability in terms of her symptoms and workup as noted above, further diagnosis can be undertaken as an outpatient. The patient knows she can return to the hospital should she have any worsening of her symptoms or if she would develop new symptoms. Documented By: Yoel Antoine Total Time Spent: Less than 30 minutes This includes examination of the patient, discharge planning, medication reconciliation, and communication with other providers. Discharge Instructions Please refer to the electronic Patient Visit Report (Discharge Instructions) for additional information. Follow-Up Neurology within 2 weeks Additional Copies To Huyen Zamora PA-C; Dash Fernández M.D.
--- NOTE | 2017-12-22 14:05 | Discharge Instructions ---
Discharge Instructions Date of Service Dec 22, 2017. Admission Reason for Admission: Progressive Symptoms For Possible Stroke Discharge Discharge Diagnosis / Problem: Left Arm, Leg, and Flank Parasthesia Discharge Goals Goal(s): Decrease discomfort, Learn about illness, Diagnostic testing, Therapeutic intervention Activity Recommendations Activity Limitations: resume your previous activity . Instructions / Follow-Up Instructions / Follow-Up You were admitted for numbness and tingling of the L arm, flank, and leg. Your imaging showed no acute abnormalities. Please follow up with Dr. Fernández on ThursdayDecember 29 at 9:30 am. If you need to change this appointment, call the office at [phone]. Please follow up at [facility] Neurology Office with Huyen Zamora PA-C on ThursdayJanuary 26 at 1:00 pm. This office is located at [address] [place] [address] in [place]. If you need to change this appointment, call the office at [phone]. You have no laboratory or imagine studies pending at time of discharge. If you develop worsening symptoms, severe headache, or loss of strength please contact your PCP Dr. De Anda at [phone] or go to the Emergency Department if you are concerned. You may resume your home medications as prescribed. Current Hospital Diet Patient's current hospital diet: AHA Diet (Heart Healthy) Discharge Diet Recommended Diet: Regular Diet Procedures Procedures Performed: MRI-Brain MRI-Cervical Spine w/ w/o contrast Pending Studies Studies pending at discharge: no Laboratory Results Hemoglobin A1c Test 12/21/17 09:46 Range/Units Estimated Average Glucose 123 mg/dl Hemoglobin A1c 5.9 H 4.5-5.6 % Medical Emergencies . Who to Call and When: Medical Emergencies: If at any time you feel your situation is an emergency, please call 911 immediately. . Non-Emergent Contact Non-Emergency issues call your: Primary Care Provider . Past History Medical & Surgical History: (1) Numbness and tingling of left upper and lower extremity . "Provider Documentation" section prepared by Vikram Addison. .
[2017-12-22 14:21] VITALS: BP 132/54; PULSE 72; TEMP 36.6; O2SAT 98
== END 2017-12-22 14:30 | disposition home or self-care (01) | DRG 92 ==
LOC: C.2T 21:55 → OBSVTOIN 22:56 → ENRESERV 12-21 18:05 → C.MS2W 12-21 18:31
PROVIDERS: ADMIT Family Medicine; ATTEND Family Medicine
DX: R20.2 Paresthesia of skin (principal); B02.29 Other postherpetic nervous system involvement; R42 Dizziness and giddiness; M50.31 Other cervical disc degeneration, high cervical region; G25.0 Essential tremor; R29.2 Abnormal reflex; C69.62 Malignant neoplasm of left orbit; I10 Essential (primary) hypertension; H40.9 Unspecified glaucoma; Z86.39 Personal history of other endocrine, nutritional and metabolic disease; Z82.3 Family history of stroke; Z79.899 Other long term (current) drug therapy; Z88.0 Allergy status to penicillin; Z88.8 Allergy status to other drugs, medicaments and biological substances; Z91.040 Latex allergy status

== ENCOUNTER 2018-10-26 07:39 | Inpatient (IN) ==
--- NOTE | 2018-10-18 10:54 | Anesthesiology Consultation ---
Date of Service October 18, 2018 Assessment & Plan (1) Encounter for pre-operative examination: - No previous anesthesia/intubation records available. Chart Review Chart Review: Acceptable Risk for Surgery (Acceptable pending PCP clearance on 10/21.) and Patient seen in Pre Admission Testing Consults Requested medical (Dr. Jc Fernández (10/21)) Teaching & Discussion Pre-Anesthesia Teaching/Discussion Notes: Instructed NPO after midnight before surgery, except medications with 15 cc of water. Medication instructions provided according to the PAT guidelines. History Surgery Operation Date: 10/26/18 10:30 Proposed Procedures p Left Total Knee Arthroplasty - Bill Corbin DO Height/Weight Height: 5 ft 4 in Weight: 66.6 kg Allergies Allergy/AdvReac Type Severity Reaction Status Date / Time latex Allergy Intermediate RASH Verified 12/20/17 23:39 omeprazole [From Prilosec] Allergy Unknown tongue Verified 10/12/18 08:26 felt burned Penicillins Allergy Unknown RASH Verified 12/20/17 23:45 "Steroids" AdvReac Severe pressure Uncoded 10/12/18 08:26 in eye to elevate Medications Home Medications Medication Instructions Recorded Confirmed Last Taken amlodipine 10 mg PO QAM 10/12/18 10/12/18 Unknown bimatoprost [Lumigan] 1 drp OPHTHALMIC (EYE) PM 10/12/18 10/12/18 Unknown dextran 70-hypromellose [GenTeal drp OPHTHALMIC (EYE) QAM 10/12/18 Unknown Tears Mild] netarsudil [Rhopressa] 1 drp OPHTHALMIC (EYE) PM 10/12/18 10/12/18 Unknown red yeast rice 1,200 mg PO DAILY 10/12/18 10/12/18 Unknown timolol 1 drp OPHTHALMIC (EYE) QAM 10/12/18 10/12/18 Unknown wheat dextrin [Benefiber Clear SF 1 packet PO QAM 10/12/18 10/12/18 Unknown (dextrin)] Past Medical History Medical History Anxiety GERD (gastroesophageal reflux disease) Diet controlled Glaucoma History of melanoma left eye - mild visual deficit History of shingles Hyperlipidemia Hypertension Numbness and tingling in left hand Osteoarthritis Exercise / Class Metabolic Activity III < 4 Walking/Shop/Light housework (Able to climb FOS several times per day. Cleans house. Denies CP or SOB. ) Past Family History Family History Father No problems noted. Past Surgical History Surgical History History of partial hysterectomy ovaries remain Hx of cataract extraction BILATERAL, also placed stent in right eye Hx of eye surgery left eye - melanoma excision Hx of tonsillectomy Past Anesthesia History No Hx of Anesthesia Complications and No Family Hx of Anesthesia Complications History of PONV No Hx of PONV Social History Smoking Status: Never smoker Do You Dip or Chew Tobacco: No Hx Alcohol Use: No Hx Substance Use: No Review of Systems Patient denies chest pain, shortness of breath, dyspnea on exertion, cough, wheezing, palpitations. +Joint Pain (Knees, Back) +Acid Reflux (Mild, takes occasional TUMS) Physical Exam Vital Signs BP: 131/62 P: 85 R: 16 T: 98.0 SPO2: 99% on RA ENMT Mouth: + dentures (Full Upper Plate) Thyromental Distance: < 3.5 Finger Breadths (3) Mallampati Class: I Neck normal visual inspection and trachea midline; neck extension not limited Respiratory normal respiratory effort Auscultation: lungs clear to auscultation bilaterally Cardiovascular Rate/Rhythm: regular rate and regular rhythm Heart Sounds: no murmur Vessels: no carotid bruit Neurologic moves all extremities Psychiatric Orientation: alert and oriented x 3 Testing Laboratory Results 10/18/18 11:06 10/18/18 10:30 10/18/18 10/18/18 10/18/18 11:06 11:06 11:06 PT 11.1 INR 1.1 APTT 27.1 Hemoglobin A1c Urine Color Yellow Urine Appearance Clear Urine pH 7.0 Ur Specific Pyote 1.019 Urine Protein Negative Urine Glucose (UA) Negative Urine Ketones Negative Urine Nitrite Negative Ur Leukocyte Esterase 1+ H Urine WBC (Auto) 1-5 Urine RBC (Auto) 0-4 U Hyaline Cast (Auto) 1-5 U Epithel Cells (Auto) 10-20 H Urine Bacteria (Auto) Negative Blood Type A Positive Antibody Screen NEGATIVE 10/18/18 11:06 PT INR APTT Hemoglobin A1c 5.8 H Urine Color Urine Appearance Urine pH Ur Specific Pyote Urine Protein Urine Glucose (UA) Urine Ketones Urine Nitrite Ur Leukocyte Esterase Urine WBC (Auto) Urine RBC (Auto) U Hyaline Cast (Auto) U Epithel Cells (Auto) Urine Bacteria (Auto) Blood Type Antibody Screen 10/18/18 11:06 Urine Culture - Final Urine,Clean Catch Three types or organisms present, all moderate counts probable skin constantino. No further identifications or sensitivities to follow. Electrocardiogram Date: 10/18/18 Findings: + NSR @ (84) and + no change from (12/21/17) Chest X-Ray Date: 10/18/18 FINDINGS: Atherosclerosis of the aortic arch. Cardiac silhouette normal in size. Lungs are mildly hyperinflated. No focal opacity. No pleural effusion or pneumothorax. Degenerative changes of the thoracic spine. Upper abdomen normal. IMPRESSION: 1. Mild hyperinflation may suggest underlying mild obstructive lung disease. Otherwise no acute cardiopulmonary disease.
--- NOTE | 2018-10-18 10:58 | PAT Medication Instructions ---
Medication Instructions Date of Service October 18, 2018 Home Medications amlodipine 10 mg PO QAM bimatoprost [Lumigan] 1 drp OPHTHALMIC (EYE) PM dextran 70-hypromellose [GenTeal Tears Mild] drp OPHTHALMIC (EYE) QAM netarsudil [Rhopressa] 1 drp OPHTHALMIC (EYE) PM red yeast rice 1,200 mg PO DAILY timolol 1 drp OPHTHALMIC (EYE) QAM wheat dextrin [Benefiber Clear SF (dextrin)] 1 packet PO QAM STOP taking 2 weeks before surgery red yeast rice 1,200 mg PO DAILY DO NOT take the morning of surgery wheat dextrin [Benefiber Clear SF (dextrin)] 1 packet PO QAM Take morning of surgery With a small sip of water, OTHERWISE NOTHING TO EAT OR DRINK AFTER MIDNIGHT: amlodipine 10 mg PO QAM dextran 70-hypromellose [GenTeal Tears Mild] drp OPHTHALMIC (EYE) QAM timolol 1 drp OPHTHALMIC (EYE) QAM Take evening before surgery bimatoprost [Lumigan] 1 drp OPHTHALMIC (EYE) PM netarsudil [Rhopressa] 1 drp OPHTHALMIC (EYE) PM Other Notes If you have any questions please call us at [phone] or [phone] or [phone] or [phone]
[2018-10-18 12:05] LABS: Basophils # (auto) 0.03 K/uL (0-0.2); Basophils % (auto) 0.3 %; Eosinophils % (auto) 1.1 %; Hematocrit (blood only) 44.6 % (37-47); Hemoglobin 14.6 g/dL (12.0-16.0); Immature Granulocytes # (auto) 0.02 K/uL (0.00-0.02); Immature Granulocytes % (auto) 0.2 %; Lymphocytes % (auto) 16.9 %; Mean Corpuscular Hgb Conc 32.7 g/dL (32-36); Mean Corpuscular Volume 85.4 fL (80-100); Mean Platelet Volume 9.6 fL (7.4-10.4); Monocytes # (auto) 0.75 K/uL (0.11-0.59); Monocytes % (auto) 8.4 %; Neutrophils # (auto) 6.49 K/uL (1.4-6.5); Neutrophils % (auto) 73.1 %; Platelet Count 278 K/uL (130-400); RDW Coefficient of Variation 13.8 % (11.5-14.5); RDW Standard Deviation 43.4 fL (36.4-46.3); Red Blood Count 5.22 M/uL (4.2-5.4); White Blood Count 8.89 K/uL (4.8-10.8)
[2018-10-18 12:12] LABS: Appearance Urine Clear (Clear); Bacteria Urine Automated Negative (Negative); Bilirubin Urine Negative (Negative); Blood Urine Negative (Negative); Color Urine Yellow; Glucose Urine UA Negative (Negative); Ketones Urine Negative (Negative); Leukocyte Esterase Urine 1+ (Negative); Nitrite Urine Negative (Negative); Protein Urine Negative (Negative); RBC Urine Automated 0-4 /hpf (0-4); Specific Gravity Urine 1.019 (1.000-1.030); Urobilinogen Urine Negative (Negative)
[2018-10-18 12:15] LABS: INR 1.1 (0.9-1.1); Partial Thromboplastin Time 27.1 Seconds (21.0-31.0); Prothrombin Time 11.1 Seconds (9.0-12.0)
[2018-10-18 12:26] LABS: Albumin Level 3.7 gm/dl (3.4-5.0); BUN Creatinine Ratio 21.6 (10-20); Calcium 9.3 mg/dl (8.5-10.1); Creatinine Clr Calc Pharmacy 57.7 ml/min; Est GFR (African American) 90.2; Est GFR (Non-African American) 77.8; Potassium 3.9 mmol/L (3.5-5.1)
--- NOTE | 2018-10-18 12:57 | XRay Report ---
XR chest Pre-admission PA/Lat CLINICAL HISTORY: 78 years-old Female presenting with preoperative assessment. TECHNIQUE: PA and lateral views of the chest were obtained. COMPARISON: 12/20/2017. FINDINGS: Atherosclerosis of the aortic arch. Cardiac silhouette normal in size. Lungs are mildly hyperinflated . No focal opacity. No pleural effusion or pneumothorax. Degenerative changes of the thoracic spine. Upper abdomen normal. IMPRESSION: 1. Mild hyperinflation may suggest underlying mild obstructive lung disease. Otherwise no acute card iopulmonary disease. Electronically signed by: Vikram Araiza M.D. 10/18/2018 12:56 PM
[2018-10-18 13:20] LABS: Estimated Average Glucose 120 mg/dl; Hemoglobin A1C 5.8 % (4.5-5.6)
--- NOTE | 2018-10-20 12:40 | History & Physical Report ---
Date of Service October 20, 2018 Date of Surgery: 10-26-18 Assessment & Plan (1) Degenerative arthritis of left knee: Further care discussed with patient and at this point in time has failed conservative measures and would like to proceed with a left total knee replacement. Plan on discharge will be home with home health physical therapy. DVT prophalaxis with TEDs, SCDs and will also place on aspirin 81 mg p.o. b.i.d. for a month postop. Patient will have follow up appointment in our office two weeks post op for staple/suture removal and re-evaluation. Patient otherwise has no other questions or concerns. History of Present Illness Chief Complaint: left knee pain Primary Care Provider: Dash Fernández Ms Ag is a 78 year old female who is here for a follow up of left knee pain, presents for pre-op prior to a left total knee replacement. She states that the symptoms have been chronic non-traumatic, and complains of pain and decreased range of motion. Currently the patient states that the symptoms are severe. The pain is described as aching, stabbing and sharp. The symptoms occur intermittently. She rates her worst pain as 10/10. She rates her current pain as 3/10. The symptoms are aggravated by daily activities, ascending stairs, descending stairs, repetitive activities, first steps while awake and walking. Ashlyn states that the symptoms are relieved by no specific activity. Prior NSAIDs include Ibuprofen and Aleve, She has been treated with previous Visco injections, and had her knees aspirated prior to her #1 Visco back in May. Pt. is unable to have Cortisone due to Hx of eye cancer and concerns of increasing eye pressure with use of cortisone. Prior pain medications include Tylenol. She has had Pt. has a knee brace with increased pain. at this point her pain is affecting her daily activities and would like to proceed with a Left TKA. Allergies Allergy/AdvReac Type Severity Reaction Status Date / Time latex Allergy Intermediate RASH Verified 12/20/17 23:39 omeprazole [From Prilosec] Allergy Unknown tongue Verified 10/12/18 08:26 felt burned Penicillins Allergy Unknown RASH Verified 12/20/17 23:45 "Steroids" AdvReac Severe pressure Uncoded 10/12/18 08:26 in eye to elevate Home Medications Home Medications Medication Instructions Recorded Confirmed Type amlodipine 10 mg PO QAM 10/12/18 10/12/18 History bimatoprost [Lumigan] 1 drp OPHTHALMIC (EYE) PM 10/12/18 10/12/18 History dextran 70-hypromellose [GenTeal drp OPHTHALMIC (EYE) QAM 10/12/18 History Tears Mild] netarsudil [Rhopressa] 1 drp OPHTHALMIC (EYE) PM 10/12/18 10/12/18 History red yeast rice 1,200 mg PO DAILY 10/12/18 10/12/18 History timolol 1 drp OPHTHALMIC (EYE) QAM 10/12/18 10/12/18 History wheat dextrin [Benefiber Clear SF 1 packet PO QAM 10/12/18 10/12/18 History (dextrin)] Past Med/Surg History Medical History Anxiety GERD (gastroesophageal reflux disease) Diet controlled Glaucoma History of melanoma left eye - mild visual deficit History of shingles Hyperlipidemia Hypertension Numbness and tingling in left hand Osteoarthritis Surgical History History of partial hysterectomy ovaries remain Hx of cataract extraction BILATERAL, also placed stent in right eye Hx of eye surgery left eye - melanoma excision Hx of tonsillectomy Family History Father No problems noted. Social History Preferred Language: Zambian Communication Ability: Effective Beliefs That Will Affect Care: None Current Living Situation: Alone Other Information That Helps Us Care for You: No Feels Safe at Home: Yes Safety Concerns: Feels Safe At This Time Smoking Status: Never smoker Do You Dip or Chew Tobacco: No Second Hand Exposure: Yes (IN PUBLIC PLACES) Hx Alcohol Use: No Hx Substance Use: No Review of Systems Review of Systems: All systems reviewed & are unremarkable except as noted in HPI & below Constitutional: no fever, no chills and no sweats Respiratory: no cough and no dyspnea Cardiovascular: no chest pain, no dyspnea and no orthopnea Gastrointestinal: no abdominal pain, no nausea and no vomiting Musculoskeletal: as per Subjective / HPI Physical Exam Physical Exam: Ht: 5ft 4in Wt: 66.6kg BP: 144/70 Pulse: 79 Constitutional: WD/WN, vitals as above no acute distress Respiratory: normal respiratory effort, lungs clear to auscultation no respiratory distress, no labored breathing and does not use accessory muscles Cardiovascular: RRR, no murmur, no edema Gastrointestinal (Abdomen): normal bowel sounds, soft, nontender, no hepatosplenomegaly Musculoskeletal: Left Knee: Ashlyn ambulates with a limp, there is no erythema, warmth, ecchymosis or atrophy noted, moderate effusion, her greatest tenderness is medial joint line, negative patellar apprehension , mild crepitation with motion, luigi's negative, posterior drawer negative. positive mcmurrays medially, negative anterior drawer, knee stable with valgus/varus stress. no extensor lag. pain with active range of motion, AROM 0/3/110, Passive ROM 0/3/115. No pain with active/passive ROM of ankle. Lower Extremity Strength normal. Lower Extremity Neuro-vascular is normal Results & Data Diagnostic Findings Left Knee X-rays on 05/17/18 showing advanced degenerative changes to the left knee, greatest narrowing of the medial compartment and patellofemoral joint, showing joint space narrowing, osteophyte formation and subchondral sclerosis. no acute bony pathology noted. overall varus alignment. no acute bony pathology
[~2018-10-26 07:39] MED LIST: ACETAMINOPHEN 500 MG TAB PO SCH; BUPIVACAINE 0.5 % 5 MG/1 ML PF 10ML VIAL ONE; CEFAZOLIN 1000MG 1,000 MG/7.5 ML SYR IV SCH; CLINDAMYCIN 600 MG/54 ML BAG IV SCH; CeleBREX 200 MG CAP PO SCH; FAMOTIDINE 20 MG TAB PO SCH; GABAPENTIN 300 MG PO SCH; METOCLOPRAMIDE HCL 10 MG TABLET PO SCH; ROPIVACAINE 0.5% 5 MG/ML 30 ML VIAL ONE; ROPIVACAINE 0.5% HCL/PF 150 MG, BUPIVACAINE 0.5% MPF 30 ML, EPINEPHrine 30MG/30ML (OR U... INFIL SCH; TRANEXAMIC ACID 1,000 MG **IV Intra-op IV SCH; TRANEXAMIC ACID 1,000 MG **IV Pre-op IV SCH; dexAMETHasone 4 MG TAB PO SCH
[2018-10-26] MEDS: LR 500ML BOLUS, THEN 15ML/HR IV SCH ×2 (08:24→08:47)
[2018-10-26] MEDS ORDERED: PROPOFOL IV EMULSION 10 MG/ML 20 ML VIAL IV ONE (09:19)
[2018-10-26] MEDS ORDERED: LIDOCAINE HCL 2% 2 ML VIAL/AMP(20MG/ML) INFIL ONE (09:19)
[2018-10-26] MEDS ORDERED: MIDAZOLAM HCL 1 MG/ML 2ML VIAL ONE (09:19)
[2018-10-26] MEDS ORDERED: BACITRACIN INJ 50,000 UNIT VIAL ONE (09:36)
[2018-10-26] MEDS ORDERED: ORTHO JOINT ANESTHETIC ONE (09:36)
[2018-10-26] MEDS ORDERED: HYDROmorphone INJ 1 MG/ML SYRINGE IV PRN (09:46)
[2018-10-26] MEDS ORDERED: PHENYLEPHRINE 100MCG/ML 5ML SYR IV PRN (09:46)
[2018-10-26] MEDS ORDERED: KETOROLAC 30 MG/ML VIAL IV PRN (09:46)
[2018-10-26] MEDS ORDERED: ATROPINE SULFATE 0.1 MG/ML 10ML SYR IV PRN (09:46)
[2018-10-26] MEDS ORDERED: ONDANSETRON INJ 2 MG/ML 2 ML VIAL IV PRN ×2 (09:46→11:46)
[2018-10-26] MEDS ORDERED: ePHEDrine sulfate 50 MG/ML AMP IV PRN (09:46)
--- NOTE | 2018-10-26 09:56 | History & Physical Bridge Note ---
Date of Service October 26, 2018 History & Physical Bridge Note I have examined the patient, reviewed the History & Physical and in the interval since the performance of the History & Physical I have noted the following changes of clinical significance: no changes noted
--- NOTE | 2018-10-26 11:05 | Operative Report ---
Post Operative Report Pre & Post Diagnosis Operation Date: 10/26/18 10:30 Pre-Op Diagnosis: Unilateral Primary Osteoarthritis, Left Knee Post-Op Diagnosis: Unilateral Primary Osteoarthritis, Left Knee Procedure Operation Date: 10/26/18 10:30 Actual Procedures p Left Total Knee Arthroplasty(Left) utilizing [employer] journey to non- block total knee arthroplasty size 4 femur 3 tibia 10 polyethylene 29 oval patella- Bill Corbin DO Surgeon Bill Corbin DO [employer] Specialist Abad WINSTON Estimated Blood Loss 5 Findings Consistent with Post-Op Diagnosis Patient presents with severe end-stage DJD left knee no response to conservative management varus alignment bone the bone changes subchondral sclerosis marginal osteophytes ligamentous laxity due to bone and cartilage loss patient presents for left total knee arthroplasty for failed attempted conservative management Specimens Bone and cartilage Drains Medium bore Hemovac Complications none Disposition Accompanied Patient To Recovery: No Disposition: Recovery Room Indications Patient presents with relatively conservative management including physical therapy anti-inflammatories relative rest activity medication cortical steroid injection Visco supplementation for left total knee arthroplasty patient is failed all attempts at conservative management above intraoperative findings noted times surgery. Description of Procedure After proper prepping and draping of the left lower extremity anterior midline incision was made over the region of the extensor extensor mechanism after meticulous hemostasis was obtained and maintained in subcutaneous tissues a medial parapatellar incision was made The patella was subluxed lateralward the medial lateral gutter were cleaned from any hypertrophic synovitis and scar tissue of the distal femoral block was placed and the distal femoral osteotomy cut was made subsequently the chamfers anterior and posterior osteotomy cuts were made utilizing the 4-in-1 block the tibia was subsequently subluxed anteriorward medial and ateral meniscal remnants were excised in their entirety remnants of the anterior and posterior cruciate ligaments were excised in their entirety excellent exposure of the proximal tibia was obtained the tibial osteotomy guide was placed on the proximal tibial osteotomy cut was made once again the knee was irrigated with copious amounts of sterile saline solution the patella was subsequently everted lateralward thickened scar tissue around the patella was removed the patella was subsequently cut utilizing a freehand technique and was drilled prepared for final preparation and placement of patella socially flexion-extension gaps were checked and the equal and symmetric trials were placed to the appropriate femoral and tibial trials with poly-spacer being placed for equal flexion and extension gaps and full range of motion including extension to 0 and flexion to 140� the trial components after having been taken to recovery range of motion was subsequently removed meticulous hemostasis was obtained and maintained subsequently a knee block injection of joint cocktail including ropivacaine 0.5% 150 mg. Bupivacaine 0.5% epinephrine 1-200,030 mL's toradol 30 mg dexamethasone 4 mg ketamine 10 mg clonidine 100 micrograms normal saline solution 30 mg was infiltrated into the soft tissues of the posterior knee medial lateral gutters and periosteal synovium special attention was paid to protect neurovascular structures at all times subsequently trial components having been removed the knee was irrigated with sterile saline solution. debris was removed the proximal tibia was subsequently prepared and was made ready for the placement of the tibial component tibial component was also cemented and tamped into position the femoral component was subsequently placed and cemented in the position the patellar component was subsequently cemented in position because hemostasis once again obtained and maintained wound having been thoroughly irrigated with debridement and debridement lavage was performed as well as a medial parapatellar incision closed with #1 Vicryl in interrupted fashion subcutaneous was closed with #2 Vicryl skin was closed with skin clips. PA-C was necessary for prepping and drapping as well as wound closure of deep fascia Sub cutaneous tissue and skin and was necessary for the case. A sterile compressive dressing was placed patient was taken to recovery in stable condition of report dictated by Shaquille I attest to the content of the Intraoperative Record and any orders documented therein. Any exceptions are noted below. I attest to the content of the Intraoperative Record and any orders documented therein. Any exceptions are noted below.
[2018-10-26] MEDS ORDERED: MAGNESIUM HYDROXIDE SUSP 30 ML UDC PO PRN (11:46)
[2018-10-26] MEDS ORDERED: HYDROmorphone INJ 0.5 MG/0.5 ML SYR IV PRN (11:46)
[2018-10-26] MEDS ORDERED: BISACODYL 10 MG SUPP PR PRN (11:46)
[2018-10-26] MEDS ORDERED: ALUMINUM/MAGNESIUM SUSP 30 ML UDC PO PRN (11:46)
[2018-10-26] MEDS ORDERED: METOCLOPRAMIDE HCL INJ 5 MG/ML 2 ML VIAL IV PRN (11:46)
[2018-10-26] MEDS ORDERED: OXYCODONE HCL IR 5 MG TAB (IMMEDIATE RELEASE) PO PRN (11:46)
[2018-10-26] MEDS ORDERED: NALOXONE HCL 0.4 MG/1 ML VIAL/CARP IV PRN (11:46)
[2018-10-26] MEDS ORDERED: SODIUM CHLORIDE 0.9% 1000ML 1,000 ML IV SCH (12:00)
--- NOTE | 2018-10-26 12:07 | XRay Report ---
XR knee LT 2V routine CLINICAL HISTORY: postop TKA COMPARISON: None FINDINGS: Alignment of the total left knee arthroplasty is anatomic. There is no fracture or unexpec yi radiopaque foreign body. Drains are in place. Extensive vascular calcification is present. IMPRESSION: Expected findings following total left knee arthroplasty. Electronically signed by: Medardo Diaz M.D. 10/26/2018 12:06 PM
--- NOTE | 2018-10-26 12:10 | Anesthesiology Progress Note ---
Date of Service October 26, 2018 Anesthesia Post Procedure Vital Signs Vital Signs: Temp Pulse Pulse Resp BP BP Pulse Ox 10/26/18 12:00 77 13 118/62 99 10/26/18 11:50 71 12 105/66 100 10/26/18 11:44 36.2 C L 70 16 107/65 100 10/26/18 08:00 36.7 C 84 18 162/79 H 98 Pain Intensity Left Knee: Pain Intensity: 0 Transfer of Care Handoff Completed per policy Notes Mental Status: alert / awake / arousable Patient Amnestic to Procedure: Yes Nausea / Vomiting: adequately controlled Pain: adequately controlled Airway Patency, RR, SpO2: stable & adequate BP & HR: stable & adequate Hydration State: stable & adequate Neuraxial Anesthesia: was administered and sensory block is resolving Anesthetic Complications: no major complications apparent
[2018-10-26] MEDS: KETOROLAC TROMETHAMINE 15 MG/ML VIAL IV SCH ×2 (13:24→20:19)
[2018-10-26] MEDS: ASCORBIC ACID 500 MG TAB PO SCH (16:14)
[2018-10-26] MEDS: ACETAMINOPHEN 500 MG TAB PO SCH ×2 (16:14→23:45)
[2018-10-26] MEDS: FERROUS GLUCONATE 324 MG TAB PO SCH (16:14)
--- NOTE | 2018-10-26 17:01 | Hospitalist Consultation ---
Date of Consultation October 26, 2018 Assessment & Plan (1) Degenerative arthritis of left knee: - S/p left total knee today, doing well. - Pain control and DVT ppx per primary team. - Monitor CBC qAM to evaluate for acute blood loss. - PT/OT evaluations. (2) HTN (hypertension): - Currently hypotensive -- will hold home Amlodipine and monitor. - On IV fluids at 100 cc/hr. (3) Glaucoma: - Continue home eye drops. (4) Melanoma of eye: - H/o, has left sided visual deficits related to previous disease. (5) GERD (gastroesophageal reflux disease): - PPI daily. (6) DVT prophylaxis: - SCDs; Aspirin 81 mg BID. Dispo: Will continue to follow, please call with any questions. Supervising Physician Co-Signing Physician Notes Attending Attestation & Consult Note: Pt seen/examined, chart reviewed, care plan d/w CATRACHITO Zamora. I agree w/ the chaney components of her documentation. 78yo female with h/o HTN, GERD, and prior melanoma who presented today for elective left-sided TKR. I saw her post-op on the ortho floor and she was resting comfortably. No chest pain, dyspnea, abd pain, nausea or emesis. PMH, PSH, allergies, meds, sochx, famhx, ros - reviewed VSS gen - nad heart - RRR, s1, s2 lungs - CTA b/l abd - soft NT ND BS+ ext - no edema; pulses 2+ b/l musculo - left knee with dressings/[place] wrap intact; ice pack in place A/P: s/p left TKR today DVT proph, pain control, dispo per ortho will follow labs, vitals and other medical issues Suresh Borjas MD History of Present Illness Reason for Consultation: Medical Management Attending Physician: Bill Corbin DO History of Present Illness Mrs. Ag is an 78 year old female with past medical history of anxiety, GERD, Glaucoma, HTN, osteoarthritis, left eye melanoma who presented for a left total knee arthroplasty. She is doing well post op - denies significant pain, chest pain, SOB, urinary retention, N/V. Allergies Allergy/AdvReac Type Severity Reaction Status Date / Time latex Allergy Intermediate RASH Verified 10/26/18 08:03 Penicillins Allergy Intermediate RASH Verified 10/26/18 08:03 Corticosteroids AdvReac Intermediate pressure Verified 10/26/18 08:03 (Glucocorticoids) in eye to elevate omeprazole [From Prilosec] AdvReac Intermediate tongue Verified 10/26/18 08:03 felt burned Home Medications Home Medications Medication Instructions Recorded Confirmed Type Benefiber Clear SF (dextrin) 1 packet PO QAM 10/12/18 10/26/18 History GenTeal Tears Mild drp OPHTHALMIC (EYE) QAM 10/12/18 History Lumigan 1 drp OPHTHALMIC (EYE) PM 10/12/18 10/26/18 History Rhopressa 1 drp OPHTHALMIC (EYE) PM 10/12/18 10/26/18 History amlodipine 10 mg PO QAM 10/12/18 10/26/18 History red yeast rice 1,200 mg PO DAILY 10/12/18 10/26/18 History timolol 1 drp OPHTHALMIC (EYE) QAM 10/12/18 10/26/18 History acetaminophen [Tylenol Extra 1,000 mg PO Q8H 14 Days #84 tab 10/28/18 Rx Strength] aspirin [Ecotrin Low Strength] 81 mg PO BID 30 Days #60 tab 10/28/18 Rx celecoxib [Celebrex] 200 mg PO BID 30 Days #60 cap 10/28/18 Rx clindamycin HCl 300 mg PO TID 10 Days #30 cap 10/28/18 Rx docusate sodium 100 mg PO BID 10 Days #20 cap 10/28/18 Rx oxycodone 5 - 10 mg PO Q4H PRN #30 tab 10/28/18 Rx Patient History Medical History Anxiety GERD (gastroesophageal reflux disease) Diet controlled Glaucoma History of melanoma left eye - mild visual deficit History of shingles Hyperlipidemia Hypertension Numbness and tingling in left hand Osteoarthritis Surgical History History of partial hysterectomy ovaries remain Hx of cataract extraction BILATERAL, also placed stent in right eye Hx of eye surgery left eye - melanoma excision Hx of tonsillectomy Family History Father No problems noted. Social History Preferred Language: Icelandic Communication Ability: Effective Beliefs That Will Affect Care: None marital status: / Current Living Situation: Alone Other Information That Helps Us Care for You: No Feels Safe at Home: Yes Safety Concerns: Feels Safe At This Time Smoking Status: Never smoker Do You Dip or Chew Tobacco: No Second Hand Exposure: Yes (IN PUBLIC PLACES) Hx Alcohol Use: No Hx Substance Use: No Review of Systems Review of Systems: All systems reviewed & are unremarkable except as noted in HPI & below Constitutional: no fever, no chills, no fatigue and no weakness Respiratory: no cough, no dyspnea, no dyspnea on exertion and no wheezing Cardiovascular: no chest pain, no palpitations and no edema Gastrointestinal: no abdominal pain, no nausea, no vomiting and no constipation Genitourinary: no difficulty urinating Musculoskeletal: no back pain and no joint pain Integumentary: no non-healing lesions Allergy / Immunological: no rash Physical Exam Physical Exam: General: Resting comfortably in no apparent distress HEENT: NC/AT; PERRLA with EOMI; [place] conjunctiva, MMM. No erythema of posterior pharynx Neck: Supple and nontender Cardiac: RRR w/o murmurs, gallops or rubs; S1 and S2 Lungs: CTA bilaterally; No rhonchi, wheezing, or rales Abdomen: Bowel normoactive X 4; Nontender to palpation Extremities: Warm. No edema present Neuro: No focal weakness Skin: No rash Results & Data Vital Signs (Past 12 Hours) Vital Signs Temp Pulse Pulse Pulse Resp BP BP 10/26/18 15:35 36.5 C 70 16 93/60 L 10/26/18 14:16 77 16 113/66 10/26/18 13:43 78 16 119/70 10/26/18 13:05 75 16 122/70 10/26/18 12:35 36.6 C 72 16 110/65 10/26/18 12:20 73 12 115/64 10/26/18 12:10 36.6 C 74 12 113/66 10/26/18 12:00 77 13 118/62 10/26/18 11:50 71 12 105/66 10/26/18 11:44 36.2 C L 70 16 107/65 10/26/18 08:00 36.7 C 84 18 162/79 H Pulse Ox 10/26/18 15:35 99 10/26/18 14:16 100 10/26/18 13:43 100 10/26/18 13:05 99 10/26/18 12:35 97 10/26/18 12:20 93 10/26/18 12:10 95 10/26/18 12:00 99 10/26/18 11:50 100 10/26/18 11:44 100 10/26/18 08:00 98 PG Care Time/CCT Total # of Minutes Spent Total Time Spent with Patient: Total time spent is greater than 50% in coordination of care (as documented) at patient's floor/unit and/or counseling patient:
[2018-10-26] MEDS: CLINDAMYCIN 600 MG in DEXTROSE 5% 50 ML IV SCH (18:11)
[2018-10-26] MEDS: RHOPRESSA OPL SCH (20:17)
[2018-10-26] MEDS: DOCUSATE SODIUM 100 MG CAP PO SCH (20:21)
[2018-10-26] MEDS: ASPIRIN 81 MG ECTAB PO SCH (20:21)
[2018-10-26] MEDS: SENNA 8.6 MG TAB PO SCH (20:22)
[2018-10-26] MEDS: BIMATOPROST 0.01% OP SOLN 2.5 ML BTL OP SCH (22:13)
[2018-10-27] MEDS: CLINDAMYCIN 600 MG in DEXTROSE 5% 50 ML IV SCH (02:36)
[2018-10-27] MEDS: KETOROLAC TROMETHAMINE 15 MG/ML VIAL IV SCH ×2 (02:37→07:25)
[2018-10-27 06:02] LABS: Hematocrit (blood only) 36.7 % (37-47); Hemoglobin 12.1 g/dL (12.0-16.0); Mean Corpuscular Volume 83.8 fL (80-100); Mean Platelet Volume 9.3 fL (7.4-10.4); Platelet Count 229 K/uL (130-400); RDW Coefficient of Variation 13.5 % (11.5-14.5); RDW Standard Deviation 40.8 fL (36.4-46.3); Red Blood Count 4.38 M/uL (4.2-5.4); White Blood Count 16.22 K/uL (4.8-10.8)
[2018-10-27 06:39] LABS: BUN Creatinine Ratio 21.8 (10-20); Calcium 8.6 mg/dl (8.5-10.1); Est GFR (African American) 81.9; Est GFR (Non-African American) 70.7; Magnesium 2.2 mg/dl (1.8-2.4); Potassium 3.9 mmol/L (3.5-5.1)
--- NOTE | 2018-10-27 07:19 | Orthopedic Progress Note ---
Date of Service October 27, 2018 Assessment & Plan (1) Status post total left knee replacement: POD #1 s/p Left TKA pt/ot dvt proph with FIFI/SCD/ASA plan for d/c home with HHPT when stable, likely Subjective POD #1 s/p Left TKA Review of Systems Constitutional: no fever and no chills Respiratory: no cough and no dyspnea Cardiovascular: no chest pain Physical Exam Physical Exam: Vital Signs Temp 36.4 C L 10/27/18 07:07 Pulse 74 10/27/18 07:07 Resp 16 10/27/18 07:07 BP 147/69 H 10/27/18 07:07 Pulse Ox 99 10/27/18 07:07 Intake & Output 10/26/10/27/18 10/27/18 18:59 06:59 18:59 Intake Total 1093.25 / 2343.917 1250.667 / 2343.91 7 Output Total 490 / 1989 1500 / 1989 Balance 603.25 / 353.917 -249.333 / 353.917 Weight 65.346 kg Intake: IV 243.25 / 993.917 750.667 / 993.917 Cleocin 600 mg In D5w 50 ml @ 54 / 108 54 / 108 100 mls/hr IV Q8H [facility] Rx#: [id number] CLEOCIN 600 mg In 54 ml @ 100 54 / 54 mls/hr IV PREO P [facility] Rx#: [id number] Lr 1,000 ml @ 15 mls/hr IV . 25.25 / 25.25 Q24H [facility] Rx#:[id number] Nss 1000ML 1,0 00 ml @ 100 mls/ 696.667 / 696.667 hr IV .Q10H SC H Rx#:[id number] Cyklokapron 1, 000 mg In Sodium 110 / 110 Chloride 100 m l @ 660 mls/hr IV 0630 [facility] Rx#:[id number] IV Perioperative 850 / 850 Oral 500 / 500 Output: Urine 450 / 1550 1100 / 1550 Estimated Blood Loss 5 / 5 Drain Output 35 / 435 400 / 435 Left Knee 35 / 435 400 / 435 Constitutional: WD/WN, vitals as above Musculoskeletal: Left leg: NVDI, calf SNT, negative tina sign. DP palpable, able to wiggle toes/ankle movement without difficulty. nikita wrap clean dry and intact. Results & Data Vital Signs (Past 12 Hours) Vital Signs Temp Pulse Pulse Resp BP Pulse Ox 10/27/18 07:07 36.4 C L 74 16 147/69 H 99 10/27/18 03:21 36.5 C 72 16 155/78 H 98 10/26/18 23:54 36.6 C 76 16 152/80 H 96 10/26/18 19:54 36.7 C 73 16 111/64 92 Laboratory Results Laboratory Results WBC 16.22 K/uL (4.8-10.8) H 10/27/18 05:39 RBC 4.38 M/uL (4.2-5.4) 10/27/18 05:39 Hgb 12.1 g/dL (12.0-16.0) 10/27/18 05:39 Hct 36.7 % (37-47) L 10/27/18 05:39 MCV 83.8 fL (80-100) 10/27/18 05:39 MCH 27.6 pg (25-34) 10/27/18 05:39 MCHC 33.0 g/dL (32-36) 10/27/18 05:39 RDW Std Deviation 40.8 fL (36.4-46.3) 10/27/18 05:39 RDW Coeff of Arnav 13.5 % (11.5-14.5) 10/27/18 05:39 Plt Count 229 K/uL (130-400) 10/27/18 05:39 MPV 9.3 fL (7.4-10.4) 10/27/18 05:39 Immature Gran % (Auto) 0.2 % 10/18/18 11:06 Neut % (Auto) 73.1 % 10/18/18 11:06 Lymph % (Auto) 16.9 % 10/18/18 11:06 [place] % (Auto) 8.4 % 10/18/18 11:06 Eos % (Auto) 1.1 % 10/18/18 11:06 Baso % (Auto) 0.3 % 10/18/18 11:06 Immature Gran # (Auto) 0.02 K/uL (0.00-0.02) 10/18/18 11:06 Neut # (Auto) 6.49 K/uL (1.4-6.5) 10/18/18 11:06 Lymph # (Auto) 1.50 K/uL (1.2-3.4) 10/18/18 11:06 [place] # (Auto) 0.75 K/uL (0.11-0.59) H 10/18/18 11:06 Eos # (Auto) 0.10 K/uL (0-0.5) 10/18/18 11:06 Baso # (Auto) 0.03 K/uL (0-0.2) 10/18/18 11:06 PT 11.1 Seconds (9.0-12.0) 10/18/18 11:06 INR 1.1 (0.9-1.1) 10/18/18 11:06 APTT 27.1 Seconds (21.0-31.0) 10/18/18 11:06 PTT Ratio 1.0 10/18/18 11:06 Sodium 141 mmol/L (136-145) 10/27/18 05:39 Potassium 3.9 mmol/L (3.5-5.1) 10/27/18 05:39 Chloride 108 mmol/L (98-107) H 10/27/18 05:39 Carbon Dioxide 28 mmol/L (21-32) 10/27/18 05:39 Anion Gap 5.0 (3-11) 10/27/18 05:39 BUN 17 mg/dl (7-18) 10/27/18 05:39 Creatinine 0.79 mg/dl (0.6-1.2) 10/27/18 05:39 Est Cr Clr Drug Dosing 49.0 ml/min 10/27/18 05:39 Est GFR ( Amer) 81.9 10/27/18 05:39 Est GFR (Non-Af Amer) 70.7 10/27/18 05:39 BUN/Creatinine Ratio 21.8 (10-20) H 10/27/18 05:39 Glucose 120 mg/dl (70-99) H 10/27/18 05:39 Estimat Average Glucose 120 mg/dl 10/18/18 11:06 Hemoglobin A1c 5.8 % (4.5-5.6) H 10/18/18 11:06 Calcium 8.6 mg/dl (8.5-10.1) 10/27/18 05:39 Magnesium 2.2 mg/dl (1.8-2.4) 10/27/18 05:39 Albumin 3.7 gm/dl (3.4-5.0) 10/18/18 10:30 Urine Color Yellow 10/18/18 11:06 Urine Appearance Clear (Clear) 10/18/18 11:06 Urine pH 7.0 (4.5-7.5) 10/18/18 11:06 Ur Specific [place] 1.019 (1.000-1.030) 10/18/18 11:06 Urine Protein Negative (Negative) 10/18/18 11:06 Urine Glucose (UA) Negative (Negative) 10/18/18 11:06 Urine Ketones Negative (Negative) 10/18/18 11:06 Urine Blood Negative (Negative) 10/18/18 11:06 Urine Nitrite Negative (Negative) 10/18/18 11:06 Urine Bilirubin Negative (Negative) 10/18/18 11:06 Urine Urobilinogen Negative (Negative) 10/18/18 11:06 Ur Leukocyte Esterase 1+ (Negative) H 10/18/18 11:06 Urine WBC (Auto) 1-5 /hpf (0-5) 10/18/18 11:06 Urine RBC (Auto) 0-4 /hpf (0-4) 10/18/18 11:06 U Hyaline Cast (Auto) 1-5 /lpf (0-5) 10/18/18 11:06 U Epithel Cells (Auto) 10-20 /lpf (0-5) H 10/18/18 11:06 Urine Bacteria (Auto) Negative (Negative) 10/18/18 11:06 Blood Type A Positive 10/18/18 11:06 Antibody Screen NEGATIVE 10/18/18 11:06 Diagnostic Findings XR knee LT 2V routine CLINICAL HISTORY: postop TKA COMPARISON: None FINDINGS: Alignment of the total left knee arthroplasty is anatomic. There is no fracture or unexpected radiopaque foreign body. Drains are in place. Extensive vascular calcification is present. IMPRESSION: Expected findings following total left knee arthroplasty.
[2018-10-27] MEDS: dexAMETHasone 10 MG in SYRINGE 0 ML IV SCH ×2 (07:25→07:37)
[2018-10-27] MEDS: TIMOLOL MALEATE 0.5% OP SOLN 5 ML BTL OPL SCH (07:26)
[2018-10-27] MEDS: ACETAMINOPHEN 500 MG TAB PO SCH ×3 (07:27→22:06)
--- NOTE | 2018-10-27 07:59 | Anesthesiology Progress Note ---
Date of Service October 27, 2018 Anesthesia Post Procedure Vital Signs Vital Signs: Temp Pulse Pulse Pulse Pulse Resp BP 10/27/18 07:07 36.4 C L 74 16 10/27/18 03:21 36.5 C 72 16 10/26/18 23:54 36.6 C 76 16 10/26/18 19:54 36.7 C 73 16 10/26/18 15:35 36.5 C 70 16 93/60 L 10/26/18 14:16 77 16 113/66 10/26/18 13:43 78 16 119/70 10/26/18 13:05 75 16 122/70 10/26/18 12:35 36.6 C 72 16 110/65 10/26/18 12:20 73 12 115/64 10/26/18 12:10 36.6 C 74 12 113/66 10/26/18 12:00 77 13 118/62 10/26/18 11:50 71 12 105/66 10/26/18 11:44 36.2 C L 70 16 107/65 10/26/18 08:00 36.7 C 84 18 BP Pulse Ox 10/27/18 07:07 147/69 H 99 10/27/18 03:21 155/78 H 98 10/26/18 23:54 152/80 H 96 10/26/18 19:54 111/64 92 10/26/18 15:35 99 10/26/18 14:16 100 10/26/18 13:43 100 10/26/18 13:05 99 10/26/18 12:35 97 10/26/18 12:20 93 10/26/18 12:10 95 10/26/18 12:00 99 10/26/18 11:50 100 10/26/18 11:44 100 10/26/18 08:00 162/79 H 98 Pain Intensity Left Knee: Pain Intensity: 0 Notes Mental Status: alert / awake / arousable and participated in evaluation Nausea / Vomiting: adequately controlled Pain: adequately controlled Airway Patency, RR, SpO2: stable & adequate BP & HR: stable & adequate Hydration State: stable & adequate Neuraxial Anesthesia: sensory block resolved Anesthetic Complications: Pt Satisfied with anesthetic care
[2018-10-27] MEDS: FERROUS GLUCONATE 324 MG TAB PO SCH ×2 (08:53→17:44)
[2018-10-27] MEDS: ASCORBIC ACID 500 MG TAB PO SCH ×2 (08:53→17:44)
[2018-10-27] MEDS: AMLODIPINE BESYLATE 5 MG TAB PO SCH (08:53)
[2018-10-27] MEDS: MULTIVITAMIN TAB PO SCH (08:53)
[2018-10-27] MEDS: PANTOprazole 40 MG TAB PO SCH (08:54)
[2018-10-27] MEDS: ASPIRIN 81 MG ECTAB PO SCH ×2 (08:54→20:08)
[2018-10-27] MEDS: DOCUSATE SODIUM 100 MG CAP PO SCH ×2 (08:54→20:09)
[2018-10-27] MEDS ORDERED: AMLODIPINE BESYLATE 5 MG TAB PO SCH (09:00)
--- NOTE | 2018-10-27 11:03 | Hospitalist Progress Note ---
Date of Service October 27, 2018 Assessment & Plan (1) Degenerative arthritis of left knee: - S/p left total knee on 10/26, POD#1. - Pain control and DVT ppx per primary team. - Monitor CBC qAM to evaluate for acute blood loss - H/H has been stable. - PT/OT - discharge with home health. (2) HTN (hypertension): - Hypotensive in post op period, now improved. - Resumed home Amlodipine as prescribed. (3) Glaucoma: - Continue home eye drops. (4) Melanoma of eye: - H/o, has left sided visual deficits related to previous disease. (5) GERD (gastroesophageal reflux disease): - PPI daily. (6) DVT prophylaxis: - SCDs; Aspirin 81 mg BID. Dispo: Pt is medically stable, will sign off. Please call with any questions. Supervising Physician Co-Signing Physician Notes Attending Attestation: Chart reviewed, care plan d/w CATRACHITO Zamora. I agree w/ the chaney components of her documentation. s/p left-sided TKR, POD #1. Had transient hypotension - now resolved. Other vitals and labs acceptable. Mild acute blood loss present but H/H acceptable. Chronic medical issues stable. Suresh Borjas MD Subjective Pt. is doing well today -- has pain in knee with ambulation. Denies chest pain, SOB, N/V. Is passing gas, has not had a BM since admission. Review of Systems Review of Systems: All systems reviewed & are unremarkable except as noted in HPI & below Constitutional: no fever, no chills, no fatigue, no weakness and no anorexia Respiratory: no cough, no dyspnea, no dyspnea on exertion and no wheezing Cardiovascular: no chest pain, no palpitations and no edema Gastrointestinal: no abdominal pain, no nausea, no vomiting, no constipation and no diarrhea/loose stools Genitourinary: no difficulty urinating Musculoskeletal: + joint pain; no back pain Integumentary: no non-healing lesions Allergy / Immunological: no rash Physical Exam Physical Exam: General: Resting comfortably in no apparent distress HEENT: NC/AT; PERRLA with EOMI; [place] conjunctiva, MMM. No erythema of posterior pharynx Neck: Supple and nontender Cardiac: RRR w/o murmurs, gallops or rubs; S1 and S2 Lungs: CTA bilaterally; No rhonchi, wheezing, or rales Abdomen: Bowel normoactive X 4; Nontender to palpation Extremities: Warm. No edema present. Dressing in place over left knee. Neuro: No focal weakness Skin: No rash Results & Data Vital Signs (Past 12 Hours) Vital Signs Temp Pulse Resp BP Pulse Ox 10/27/18 07:07 36.4 C L 74 16 147/69 H 99 10/27/18 03:21 36.5 C 72 16 155/78 H 98 10/26/18 23:54 36.6 C 76 16 152/80 H 96 Laboratory Results 10/27/18 10/27/18 Range/Units 05:39 05:39 WBC 16.22 H (4.8-10.8) K/uL RBC 4.38 (4.2-5.4) M/uL Hgb 12.1 (12.0-16.0) g/dL Hct 36.7 L (37-47) % MCV 83.8 (80-100) fL MCH 27.6 (25-34) pg MCHC 33.0 (32-36) g/dL RDW Std Deviation 40.8 (36.4-46.3) fL RDW Coeff of Arnav 13.5 (11.5-14.5) % Plt Count 229 (130-400) K/uL MPV 9.3 (7.4-10.4) fL Sodium 141 (136-145) mmol/L Potassium 3.9 (3.5-5.1) mmol/L Chloride 108 H (98-107) mmol/L Carbon Dioxide 28 (21-32) mmol/L Anion Gap 5.0 (3-11) BUN 17 (7-18) mg/dl Creatinine 0.79 (0.6-1.2) mg/dl Est Cr Clr Drug Dosing 49.0 ml/min Est GFR ( Amer) 81.9 Est GFR (Non-Af Amer) 70.7 BUN/Creatinine Ratio 21.8 H (10-20) Glucose 120 H (70-99) mg/dl Calcium 8.6 (8.5-10.1) mg/dl Magnesium 2.2 (1.8-2.4) mg/dl PG Care Time/CCT Total # of Minutes Spent Total Time Spent with Patient: Total time spent is greater than 50% in coordination of care (as documented) at patient's floor/unit and/or counseling patient:
[2018-10-27] MEDS: RHOPRESSA OPL SCH (19:55)
[2018-10-27] MEDS: CeleBREX 200 MG CAP PO SCH (20:07)
[2018-10-27] MEDS: SENNA 8.6 MG TAB PO SCH (20:09)
[2018-10-27] MEDS: BIMATOPROST 0.01% OP SOLN 2.5 ML BTL OP SCH (22:05)
[2018-10-28 05:49] LABS: Hematocrit (blood only) 32.7 % (37-47); Hemoglobin 10.6 g/dL (12.0-16.0); Mean Corpuscular Hgb Conc 32.4 g/dL (32-36); Mean Corpuscular Volume 84.9 fL (80-100); Mean Platelet Volume 9.1 fL (7.4-10.4); Platelet Count 205 K/uL (130-400); RDW Coefficient of Variation 14.1 % (11.5-14.5); RDW Standard Deviation 42.9 fL (36.4-46.3); Red Blood Count 3.85 M/uL (4.2-5.4); White Blood Count 9.06 K/uL (4.8-10.8)
[2018-10-28 06:18] LABS: BUN Creatinine Ratio 27.1 (10-20); Calcium 8.2 mg/dl (8.5-10.1); Creatinine Clr Calc Pharmacy 61.5 ml/min; Est GFR (African American) 98.2; Est GFR (Non-African American) 84.7; Potassium 3.6 mmol/L (3.5-5.1)
--- NOTE | 2018-10-28 06:41 | Orthopedic Progress Note ---
Date of Service October 28, 2018 Assessment & Plan (1) Status post total left knee replacement: POD #2 s/p Left TKA pt/ot dvt proph with FIFI/SCD/ASA plan for d/c home with HHPT after PT today Subjective POD #2 s/p Left TKA Review of Systems Review of Systems: All systems reviewed & are unremarkable except as noted in HPI & below Constitutional: no fever and no chills Cardiovascular: no chest pain and no dyspnea Physical Exam Physical Exam: Vital Signs Temp 36.8 C 10/27/18 23:36 Pulse 83 10/27/18 23:36 Resp 16 10/27/18 23:36 BP 151/87 H 10/27/18 23:36 Pulse Ox 96 10/27/18 23:36 Intake & Output 10/27/1810/27/10/28/18 06:59 18:59 06:59 Intake Total 1250.667 / 2343.91 7 840 / 1620.5 780.5 / 1620.5 Output Total 1500 / 1990 201 / 401 200 / 401 Balance -249.333 / 353.917 639 / 1219.5 580.5 / 1219.5 Intake: IV 750.667 / 993.917 380.5 / 380.5 Cleocin 600 mg In D5w 50 ml @ 54 / 108 100 mls/hr IV Q8H [facility] Rx#: [id number] Nss 1000ML 1,0 00 ml @ 100 mls/ 696.667 / 696.667 hr IV .Q10H SC H Rx#:[id number] Oral 500 / 500 840 / 1240 400 / 1240 Output: Urine 1100 / 1550 Drain Output 400 / 435 200 / 400 200 / 400 Left Knee 400 / 435 200 / 400 200 / 400 # Bowel Movement s / Other: # Unmeasured Voi ds 1 1 Constitutional: WD/WN, vitals as above no acute distress Musculoskeletal: left knee: NVDI, calf SNT, negative tina sign. DP palpable, able to wiggle toes/ankle movement without difficulty. zipline dressing in place. Results & Data Vital Signs (Past 12 Hours) Vital Signs Temp Pulse Resp BP Pulse Ox 10/27/18 23:36 36.8 C 83 16 151/87 H 96
[2018-10-28] MEDS: TIMOLOL MALEATE 0.5% OP SOLN 5 ML BTL OPL SCH (08:14)
[2018-10-28] MEDS: AMLODIPINE BESYLATE 5 MG TAB PO SCH (08:15)
[2018-10-28] MEDS: DOCUSATE SODIUM 100 MG CAP PO SCH (08:16)
[2018-10-28] MEDS: ASCORBIC ACID 500 MG TAB PO SCH (08:16)
[2018-10-28] MEDS: CeleBREX 200 MG CAP PO SCH (08:16)
[2018-10-28] MEDS: ASPIRIN 81 MG ECTAB PO SCH (08:16)
[2018-10-28] MEDS: MULTIVITAMIN TAB PO SCH (08:17)
[2018-10-28] MEDS: PANTOprazole 40 MG TAB PO SCH (08:17)
[2018-10-28] MEDS: FERROUS GLUCONATE 324 MG TAB PO SCH (08:17)
[2018-10-28] MEDS: ACETAMINOPHEN 500 MG TAB PO SCH (08:17)
--- NOTE | 2018-11-02 13:54 | Discharge Summary ---
CHIEF COMPLAINT: Left knee pain. Please see complete history and physical examination. HOSPITAL COURSE: The patient underwent left total knee arthroplasty without complication. She tolerated the procedure well and was discharged to recovery room in stable condition. Her postoperative course was relatively uneventful. Her postoperative pain was reasonably well controlled with a combination of spinal anesthesia, adductor canal block, intraoperative joint injection, IV and oral pain medications. She was started on aspirin for DVT prophylaxis. She also utilized FIFI stockings and SCDs for additional prophylaxis. Her H and H were stable and did not require transfusion. Her surgical dressing and drain were discontinued on postop day 2. A new dressing was applied prior to discharge. She tolerated postoperative physical therapy reasonably well where she was ambulating and transferring appropriately. She was discharged home on postoperative day #2. She will continue her physical therapy at home with home health. She will continue her aspirin for DVT prophylaxis and follow up in our office in approximately 10-14 days for initial postop evaluation.
== END 2018-10-28 12:19 | disposition home health service (06) ==
LOC: ASU 07:39 → 3E 11:46

== ENCOUNTER 2019-11-09 05:09 | Inpatient (IN) ==
[2019-10-12 11:39] LABS: Basophils # (auto) 0.03 K/uL (0-0.2); Basophils % (auto) 0.4 %; Eosinophils # (auto) 0.24 K/uL (0-0.5); Eosinophils % (auto) 3.5 %; Hematocrit (blood only) 45.9 % (37-47); Hemoglobin 15.3 g/dL (12.0-16.0); Immature Granulocytes # (auto) 0.01 K/uL (0.00-0.02); Immature Granulocytes % (auto) 0.1 %; Lymphocytes # (auto) 1.26 K/uL (1.2-3.4); Lymphocytes % (auto) 18.6 %; Mean Corpuscular Hemoglobin 28.2 pg (25-34); Mean Corpuscular Hgb Conc 33.3 g/dL (32-36); Mean Corpuscular Volume 84.7 fL (80-100); Mean Platelet Volume 9.7 fL (7.4-10.4); Monocytes # (auto) 0.64 K/uL (0.11-0.59); Monocytes % (auto) 9.4 %; Neutrophils # (auto) 4.61 K/uL (1.4-6.5); Platelet Count 254 K/uL (130-400); RDW Coefficient of Variation 13.9 % (11.5-14.5); RDW Standard Deviation 43.2 fL (36.4-46.3); Red Blood Count 5.42 M/uL (4.2-5.4); White Blood Count 6.79 K/uL (4.8-10.8)
[2019-10-12 11:53] LABS: Appearance Urine Clear (Clear); Bacteria Urine Automated Negative (Negative); Bilirubin Urine Negative (Negative); Blood Urine Negative (Negative); Color Urine Yellow; Glucose Urine UA Negative (Negative); Ketones Urine Negative (Negative); Leukocyte Esterase Urine Trace (Negative); Nitrite Urine Negative (Negative); Protein Urine Negative (Negative); RBC Urine Automated 0-4 /hpf (0-4); Specific Gravity Urine 1.016 (1.000-1.030); Urobilinogen Urine Negative (Negative)
[2019-10-12 11:54] LABS: INR 1.1 (0.9-1.1); Partial Thromboplastin Ratio 1.1; Partial Thromboplastin Time 30.5 Seconds (21.0-31.0); Prothrombin Time 11.7 Seconds (9.0-12.0)
[2019-10-12 12:05] LABS: BUN Creatinine Ratio 17.4 (10-20); Blood Urea Nitrogen 11 mg/dl (7-18); Carbon Dioxide 31 mmol/L (21-32); Chloride 106 mmol/L (98-107); Est GFR (Non-African American) 83.7; Glucose 102 mg/dl (70-99); Potassium 3.5 mmol/L (3.5-5.1); Sodium 142 mmol/L (136-145)
[2019-10-12 12:30] LABS: Estimated Average Glucose 123 mg/dl; Hemoglobin A1C 5.9 % (4.5-5.6)
--- NOTE | 2019-10-28 13:47 | History & Physical Report ---
Date of Service October 28, 2019 date of surgery: 11-09-19 Assessment & Plan (1) Arthritis of right knee: Further care discussed with patient and at this point in time has failed conservative measures and would like to proceed with a Right total knee replacement. Plan on discharge will be home with home health physical therapy. DVT prophalaxis with TEDs, SCDs and will also place on aspirin 81 mg p.o. b.i.d. for a month postop. Patient will have follow up appointment in our office two weeks post op for staple/suture removal and re-evaluation. Patient otherwise has no other questions or concerns. History of Present Illness Chief Complaint: right knee pain Primary Care Provider: Dash C. Pradeep Goldberg is a 79 year old who complains of right knee pain, presents for pre-op evaluation prior to a Right total knee replacement by dr Corbin at [facility]. she complains of pain, crepitus, decreased range of motion, instability and stiffness in her right knee. she states that the symptoms have been chronic and non-traumatic. her symptoms occur constantly with intermittent worsening. Currently the patient states that the symptoms are moderate-severe. The pain is described as aching, sharp and throbbing. The symptoms occur continuously. The symptoms are aggravated by ascending stairs, daily activities, first steps while awake walking. Prior NSAIDs include IBU and Aleve. she has had previous visco injections in the past without much relief. she previously had left TKA and recovered well Allergies Allergy/AdvReac Type Severity Reaction Status Date / Time latex Allergy Unknown RASH Verified 07/06/19 09:09 Penicillins Allergy Unknown RASH Verified 07/06/19 09:09 Corticosteroids AdvReac Unknown evelates Verified 07/06/19 09:09 (Glucocorticoids) eye pressure omeprazole [From Prilosec] AdvReac Unknown tongue Verified 07/06/19 09:09 felt burned Home Medications Home Medications Medication Instructions Recorded Confirmed Type Benefiber Clear SF (dextrin) 1 packet PO QAM 10/12/18 07/06/19 History GenTeal Tears Mild 1 drp OPHTHALMIC (EYE) QAM 10/12/18 07/06/19 History Lumigan 1 drp OPHTHALMIC (EYE) QPM 10/12/18 07/06/19 History Rhopressa 1 drp OPHTHALMIC (EYE) PM 10/12/18 07/06/19 History amlodipine 10 mg PO QAM 10/12/18 07/06/19 History timolol 1 drp OPHTHALMIC (EYE) QAM 10/12/18 07/06/19 History calcium carbonate [Tums] 200 mg PO UD PRN 07/06/19 07/06/19 History Past Med/Surg History Social History Preferred Language: Mongolian Communication Ability: Effective Masking Machine Operator Required: No Beliefs That Will Affect Care: None marital status: / Current Living Situation: Alone Feels Safe at Home: Yes Smoking Status: Never smoker Second Hand Exposure: Yes (IN PUBLIC PLACES) ; Hx Alcohol Use: No Hx Substance Use: No Review of Systems Review of Systems: All systems reviewed & are unremarkable except as noted in HPI & below Constitutional: no fever, no chills and no sweats Respiratory: no cough and no dyspnea Cardiovascular: no chest pain, no dyspnea and no orthopnea Gastrointestinal: no abdominal pain, no nausea and no vomiting Musculoskeletal: as per Subjective / HPI Physical Exam Physical Exam: Ht: 5ft 4in Wt: 67.1kg BP: 144/70 Pulse: 80 Constitutional: WD/WN, vitals as above no acute distress Respiratory: normal respiratory effort, lungs clear to auscultation no respiratory distress, no labored breathing and does not use accessory muscles Cardiovascular: RRR, no murmur, no edema Gastrointestinal (Abdomen): normal bowel sounds, soft, nontender, no hepatosplenomegaly Musculoskeletal: Knee: + knee abnormal to inspection (right knee), + effusion (+1 effusion), + limited ROM of knee (ROM 0/3/110), + knee ROM with crepitation, + joint line tenderness (medial joint line) and + Becki's sign positive; no deformity, no skin erythema, no ecchymosis, no valgus laxity, no varus laxity, anterior drawer test negative, Nelson's sign negative and pivot shift test negative Results & Data Results & Data ([facility]) Laboratory Results Laboratory Results WBC 6.79 K/uL (4.8-10.8) 10/12/19 10:37 RBC 5.42 M/uL (4.2-5.4) H 10/12/19 10:37 Hgb 15.3 g/dL (12.0-16.0) 10/12/19 10:37 Hct 45.9 % (37-47) 10/12/19 10:37 MCV 84.7 fL (80-100) 10/12/19 10:37 MCH 28.2 pg (25-34) 10/12/19 10:37 MCHC 33.3 g/dL (32-36) 10/12/19 10:37 RDW Std Deviation 43.2 fL (36.4-46.3) 10/12/19 10:37 RDW Coeff of Arnav 13.9 % (11.5-14.5) 10/12/19 10:37 Plt Count 254 K/uL (130-400) 10/12/19 10:37 MPV 9.7 fL (7.4-10.4) 10/12/19 10:37 Immature Gran % (Auto) 0.1 % 10/12/19 10:37 Neut % (Auto) 68.0 % 10/12/19 10:37 Lymph % (Auto) 18.6 % 10/12/19 10:37 Cross % (Auto) 9.4 % 10/12/19 10:37 Eos % (Auto) 3.5 % 10/12/19 10:37 Baso % (Auto) 0.4 % 10/12/19 10:37 Immature Gran # (Auto) 0.01 K/uL (0.00-0.02) 10/12/19 10:37 Neut # (Auto) 4.61 K/uL (1.4-6.5) 10/12/19 10:37 Lymph # (Auto) 1.26 K/uL (1.2-3.4) 10/12/19 10:37 Cross # (Auto) 0.64 K/uL (0.11-0.59) H 10/12/19 10:37 Eos # (Auto) 0.24 K/uL (0-0.5) 10/12/19 10:37 Baso # (Auto) 0.03 K/uL (0-0.2) 10/12/19 10:37 PT 11.7 Seconds (9.0-12.0) 10/12/19 10:37 INR 1.1 (0.9-1.1) 10/12/19 10:37 APTT 30.5 Seconds (21.0-31.0) 10/12/19 10:37 PTT Ratio 1.1 10/12/19 10:37 Sodium 142 mmol/L (136-145) 10/12/19 10:37 Potassium 3.5 mmol/L (3.5-5.1) 10/12/19 10:37 Chloride 106 mmol/L (98-107) 10/12/19 10:37 Carbon Dioxide 31 mmol/L (21-32) 10/12/19 10:37 Anion Gap 5.0 (3-11) 10/12/19 10:37 BUN 11 mg/dl (7-18) 10/12/19 10:37 Creatinine 0.64 mg/dl (0.6-1.2) 10/12/19 10:37 Est GFR ( Amer) 97.0 10/12/19 10:37 Est GFR (Non-Af Amer) 83.7 10/12/19 10:37 BUN/Creatinine Ratio 17.4 (10-20) 10/12/19 10:37 Glucose 102 mg/dl (70-99) H 10/12/19 10:37 Estimat Average Glucose 123 mg/dl 10/12/19 10:45 Hemoglobin A1c 5.9 % (4.5-5.6) H 10/12/19 10:45 Calcium 9.0 mg/dl (8.5-10.1) 10/12/19 10:37 Albumin 4.0 gm/dl (3.4-5.0) 10/12/19 10:37 Urine Color Yellow 10/12/19 10:37 Urine Appearance Clear (Clear) 10/12/19 10:37 Urine pH 7.0 (4.5-7.5) 10/12/19 10:37 Ur Specific [place] 1.016 (1.000-1.030) 10/12/19 10:37 Urine Protein Negative (Negative) 10/12/19 10:37 Urine Glucose (UA) Negative (Negative) 10/12/19 10:37 Urine Ketones Negative (Negative) 10/12/19 10:37 Urine Blood Negative (Negative) 10/12/19 10:37 Urine Nitrite Negative (Negative) 10/12/19 10:37 Urine Bilirubin Negative (Negative) 06/03/20 10:37 Urine Urobilinogen Negative (Negative) 10/12/19 10:37 Ur Leukocyte Esterase Trace (Negative) H 10/12/19 10:37 Urine WBC (Auto) 1-5 /hpf (0-5) 10/12/19 10:37 Urine RBC (Auto) 0-4 /hpf (0-4) 10/12/19 10:37 U Hyaline Cast (Auto) 1-5 /lpf (0-5) 10/12/19 10:37 U Epithel Cells (Auto) 5-10 /lpf (0-5) H 10/12/19 10:37 Urine Bacteria (Auto) Negative (Negative) 10/12/19 10:37 Blood Type A Positive 10/12/19 10:39 Antibody Screen NEGATIVE 10/12/19 10:39 Diagnostic Findings Right knee series showing advanced degenerative changes to the right knee, narrowing of the medial compartment and patello-femoral joint with patellar spurring noted, findings showing joint space narrowing of the medial compartment and patello-femoral joint, osteophyte formation and subchondral sclerosis noted. overall varus alignment. no acute bony pathology noted.
--- NOTE | 2019-11-07 09:10 | Anesthesiology Consultation ---
Date of Service November 07, 2019 Assessment & Plan (1) Encounter for pre-operative examination: Chart Review Chart Review: Acceptable Risk for Surgery and Patient NOT seen in Pre Admission Testing Per nursing assessment 11/02/19, pt resides in [facility]. Went out to eat 10/28/19- wore mask. Follows precautions. Covid testing 11/03/19= negative. PCP note 07/27/19= Patient "was seen and examined in my office on 07/25/19 and is cleared for right TKA by Dr. Corbin." Left TKA 10/26/18= Done under SAB at L3-4. 1 attempt. No anesthesia issued noted. History Surgery Operation Date: 11/09/19 07:00 Proposed Procedures p Right Total Knee Arthroplasty - Bill Corbin DO Height/Weight Height: 5 ft 4 in Weight: 66.224 kg Allergies Allergy/AdvReac Type Severity Reaction Status Date / Time latex Allergy Unknown RASH Verified 11/02/19 16:12 Penicillins Allergy Unknown RASH Verified 11/02/19 16:12 Corticosteroids AdvReac Unknown evelates Verified 11/02/19 16:12 (Glucocorticoids) eye pressure omeprazole [From Prilosec] AdvReac Unknown tongue Verified 11/02/19 16:12 felt burned Medications Home Medications Medication Instructions Recorded Confirmed Last Taken Benefiber Clear SF (dextrin) 1 packet PO QAM 10/12/18 11/02/19 10/24/18 09:00 Lumigan 1 drp OPHTHALMIC (EYE) HS 10/12/18 11/02/19 10/25/18 22:00 Rhopressa 1 drp OPHTHALMIC (EYE) PM 10/12/18 11/02/19 10/25/18 20:00 amlodipine 10 mg PO QAM 10/12/18 11/02/19 10/26/18 07:00 timolol 1 drp OPHTHALMIC (EYE) QAM 10/12/18 11/02/19 10/26/18 05:45 calcium carbonate [Tums] 200 mg PO UD PRN 07/06/19 11/02/19 Unknown cholecalciferol (vitamin D3) 25 mcg PO QAM 11/02/19 11/02/19 Unknown [Vitamin D3] polyvinyl alcohol-povidon(PF) 1 drp OPHTHALMIC (EYE) HS 11/02/19 11/02/19 Unknown [Refresh Classic (PF)] Past Medical History Medical History Anxiety Bilateral leg numbness PT REPORTS MOSTLY AT NIGHT "FEET FEEL FUNNY AND LEGS FEEL NUMB AROUND BOTH ANKLES" GERD (gastroesophageal reflux disease) TUMS PRN Glaucoma 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 Follows closely with ophthalmology Hyperlipidemia Hypertension Numbness and tingling in left hand HX OF, NONE FOR LAST YR Osteoarthritis Thyroid nodule BENIGN Past Family History Family History Father No problems noted. Brother Family history of lung cancer Other Family history of diabetes mellitus in father Past Surgical History Surgical History History of colonoscopy History of esophagogastroduodenoscopy (EGD) X 3 History of partial hysterectomy ovaries remain Hx of cataract extraction BILAT-RIGHT EYE PROCEDURE FOR GLAUCOMA Hx of eye surgery left eye - melanoma excision-2017 Hx of tonsillectomy Status post total left knee replacement Social History Smoking Status: Never smoker Do You Dip or Chew Tobacco: No Hx Alcohol Use: No Hx Substance Use: No substance use type: does not use Testing Laboratory Results 10/12/19 10:37 10/12/19 10:37 PT 11.7 Seconds (9.0-12.0) 10/12/19 10:37 INR 1.1 (0.9-1.1) 10/12/19 10:37 APTT 30.5 Seconds (21.0-31.0) 10/12/19 10:37 Hemoglobin A1c 5.9 % (4.5-5.6) H 10/12/19 10:45 Urine Color Yellow 10/12/19 10:37 Urine Appearance Clear (Clear) 10/12/19 10:37 Urine pH 7.0 (4.5-7.5) 10/12/19 10:37 Ur Specific [place] 1.016 (1.000-1.030) 10/12/19 10:37 Urine Protein Negative (Negative) 10/12/19 10:37 Urine Glucose (UA) Negative (Negative) 10/12/19 10:37 Urine Ketones Negative (Negative) 10/12/19 10:37 Urine Nitrite Negative (Negative) 10/12/19 10:37 Ur Leukocyte Esterase Trace (Negative) H 10/12/19 10:37 Urine WBC (Auto) 1-5 /hpf (0-5) 10/12/19 10:37 Urine RBC (Auto) 0-4 /hpf (0-4) 10/12/19 10:37 U Hyaline Cast (Auto) 1-5 /lpf (0-5) 10/12/19 10:37 U Epithel Cells (Auto) 5-10 /lpf (0-5) H 10/12/19 10:37 Urine Bacteria (Auto) Negative (Negative) 10/12/19 10:37 Blood Type A Positive 10/12/19 10:39 Antibody Screen NEGATIVE 10/12/19 10:39 Electrocardiogram Date: 11/04/19 Findings: + NSR @ (83) Nonspecific ST abnormality. When compared to EKG from October 18, 2018- no si gnificant change found. Chest X-Ray Date: 11/04/19 Findings: + NAD
[2019-11-09] MEDS ORDERED: ROPIVACAINE 0.5% HCL/PF 150 MG, BUPIVACAINE 0.5% MPF 30 ML, EPINEPHrine 30MG/30ML (OR U... INSTIL SCH (06:00)
[2019-11-09] MEDS ORDERED: TRANEXAMIC ACID 1,000 MG **IV Intra-op IV SCH (06:00)
[2019-11-09] MEDS ORDERED: CeleBREX 200 MG CAP PO SCH (06:00)
[2019-11-09] MEDS ORDERED: TRANEXAMIC ACID 1,000 MG **IV Pre-op IV SCH (06:00)
[2019-11-09] MEDS ORDERED: OXYCODONE HCL 10 MG TABCR (OXYCONTIN) PO SCH (06:00)
[2019-11-09] MEDS ORDERED: FAMOTIDINE 20 MG TAB PO SCH (06:00)
[2019-11-09] MEDS ORDERED: CLINDAMYCIN 600 MG/54 ML BAG IV SCH (06:00)
[2019-11-09] MEDS ORDERED: LR 500ML BOLUS, THEN 15ML/HR IV SCH (06:00)
[2019-11-09] MEDS ORDERED: METOCLOPRAMIDE HCL 10 MG TABLET PO SCH (06:00)
[2019-11-09] MEDS ORDERED: GABAPENTIN 300 MG CAP PO SCH (06:00)
[2019-11-09] MEDS ORDERED: ACETAMINOPHEN 500 MG TAB PO SCH (06:00)
[2019-11-09] MEDS ORDERED: BUPIVACAINE 0.5 % 5 MG/1 ML PF 10ML VIAL ONE (06:21)
[2019-11-09] MEDS ORDERED: EPINEPHrine INJ 1 MG/ML AMP ONE (06:22)
[2019-11-09] MEDS ORDERED: ROPIVACAINE 0.5% 5 MG/ML 30 ML VIAL ONE (06:22)
[2019-11-09] MEDS ORDERED: PROPOFOL IV EMULSION 10 MG/ML 20 ML VIAL IV ONE (06:38)
[2019-11-09] MEDS ORDERED: fentaNYL citrate 100 MCG/2 ML VIAL ONE (06:38)
[2019-11-09] MEDS ORDERED: MIDAZOLAM HCL 1 MG/ML 2ML VIAL ONE (06:38)
[2019-11-09] MEDS ORDERED: LIDOCAINE HCL 2% 2 ML VIAL/AMP(20MG/ML) INFIL ONE (06:38)
[2019-11-09] MEDS ORDERED: ORTHO JOINT ANESTHETIC ONE (06:49)
[2019-11-09] MEDS ORDERED: BACITRACIN INJ 50,000 UNIT VIAL ONE (06:49)
[2019-11-09] MEDS ORDERED: HYDROmorphone INJ 1 MG/ML SYRINGE IV PRN (07:10)
[2019-11-09] MEDS ORDERED: LABETALOL HCL IV 5 MG/ML 20ML IV PRN (07:10)
[2019-11-09] MEDS ORDERED: PHENYLEPHRINE 100MCG/ML 5ML SYR IV PRN (07:10)
[2019-11-09] MEDS ORDERED: ePHEDrine sulfate 50 MG/ML AMP IV PRN (07:10)
[2019-11-09] MEDS ORDERED: ONDANSETRON INJ 2 MG/ML 2 ML VIAL IV PRN ×2 (07:10→10:28)
[2019-11-09] MEDS ORDERED: ATROPINE SULFATE 0.1 MG/ML 10ML SYR IV PRN (07:10)
--- NOTE | 2019-11-09 07:10 | History & Physical Bridge Note ---
Date of Service November 09, 2019 History & Physical Bridge Note I have examined the patient, reviewed the History & Physical and in the interval since the performance of the History & Physical I have noted the following changes of clinical significance: no changes noted
[2019-11-09] MEDS ORDERED: PHENYLEPHRINE 100MCG/ML 5ML SYR ONE (07:35)
--- NOTE | 2019-11-09 08:15 | Operative Report ---
Post Operative Report Pre & Post Diagnosis Operation Date: 11/09/19 07:00 Pre-Op Diagnosis: Osteoarthritis of Right Knee Post-Op Diagnosis: Osteoarthritis of Right Knee I identified the patient and participated in the time-out.: Yes Procedure Operation Date: 11/09/19 07:00 Actual Procedures p Right Total Knee Arthroplasty([facility] nephew patient matched Femur 4 tibia 3 poly 13 patella 32 - Bill Corbin DO Surgeon Bill Corbin DO Design Draftsman matt [place] Estimated Blood Loss 5 Findings Consistent with Post-Op Diagnosis Utilizing [employer] journey 2 patient matched total knee arthroplasty size 4 femur 3 tibia 13 polyethylene 32 oval patella Specimens Bone and cartilage Drains Medium bore Hemovac Anesthesia Type MAC Spinal Regional Complications none Disposition Accompanied Patient To Recovery: No Disposition: Recovery Room Indications Patient presents with severe end-stage DJD failed attempted conservative m anagement clinic physical therapy anti-inflammatories relative rest activity modification the above intraoperative findings are noted time surgery. Description of Procedure After proper prepping and draping of the Right lower extremity anterior midline incision was made over the region of the extensor extensor mechanism after meticulous hemostasis was obtained and maintained in subcutaneous tissues a medial parapatellar incision was made The patella was subluxed lateralward the medial lateral gutter were cleaned from any hypertrophic synovitis and scar tissue of the distal femoral block was placed and the distal femoral osteotomy cut was made subsequently the chamfers anterior and posterior osteotomy cuts were made utilizing the 4-in-1 block the tibia was subsequently subluxed anteriorward medial and ateral meniscal remnants were excised in their entirety remnants of the anterior and posterior cruciate ligaments were excised in their entirety excellent exposure of the proximal tibia was obtained the tibial osteotomy guide was placed on the proximal tibial osteotomy cut was made once again the knee was irrigated with copious amounts of sterile saline solution the patella was subsequently everted lateralward thickened scar tissue around the patella was removed the patella was subsequently cut utilizing a freehand technique and was drilled prepared for final preparation and placement of patella socially flexion-extension gaps were checked and the equal and symmetric trials were placed to the appropriate femoral and tibial trials with poly-spacer being placed for equal flexion and extension gaps and full range of motion including extension to 0 and flexion to 140 the trial components after having been taken to recovery range of motion was subsequently removed meticulous hemostasis was obtained and maintained subsequently a knee block injection of joint cocktail including ropivacaine 0.5% 150 mg. Bupivacaine 0.5% epinephrine 1-200,030 mL's toradol 30 mg dexamethasone 4 mg ketamine 10 mg clonidine 100 micrograms normal saline solution 30 mg was infiltrated into the soft tissues of the posterior knee medial lateral gutters and periosteal synovium special attention was paid to protect neurovascular structures at all times subsequently trial components having been removed the knee was irrigated with sterile saline solution. debris was removed the proximal tibia was subsequently prepared and was made ready for the placement of the tibial component tibial component was also cemented and tamped into position the femoral component was subsequently placed and cemented in the position the patellar component was subsequently cemented in position because hemostasis once again obtained and maintained wound having been thoroughly irrigated with debridement and debridement lavage was performed as well as a medial parapatellar incision closed with #1 Vicryl in interrupted fashion subcutaneous was closed with #2 Vicryl skin was closed with skin clips. PA-C was necessary for prepping and drapping as well as wound closure of deep fascia Sub cutaneous tissue and skin and was necessary for the case. A sterile compressive dressing was placed patient was taken to recovery in stable condition of report dictated by Shaquille I attest to the content of the Intraoperative Record and any orders documented therein. Any exceptions are noted below. I attest to the content of the Intraoperative Record and any orders documented therein. Any exceptions are noted below.
--- NOTE | 2019-11-09 08:17 | Operative Report ---
Post Operative Report Pre & Post Diagnosis Operation Date: 11/09/19 07:00 Pre-Op Diagnosis: Osteoarthritis of Right Knee Post-Op Diagnosis: Osteoarthritis of Right Knee I identified the patient and participated in the time-out.: Yes Procedure Operation Date: 11/09/19 07:00 Actual Procedures p Right Total Knee Arthroplasty(Right) Utilizing [employer] journey 2 patient patient matched total knee arthroplasty size 4 femur 3 tibia 13 polyethylene 32 oval patella- Bill Corbin DO Surgeon Bill Corbin DO Partner Alliance Manager matt [place] Estimated Blood Loss 5 Findings Consistent with Post-Op Diagnosis Patient presents with severe end-stage tricompartmental degenerative joint disease no response to conservative management patient has subchondral cystic changes marginal osteophytes [id number] eburnated bone moderate to large effusion Specimens Bone and cartilage Drains Medium bore Hemovac Anesthesia Type MAC Spinal Regional Complications none Disposition Accompanied Patient To Recovery: No Disposition: Recovery Room Indications Patient presents after failed attempted conservative management clinic physical therapy anti-inflammatories relative rest activity modification corticosteroid injection Visco supplementation Description of Procedure After proper prepping and draping of the Right lower extremity anterior midline incision was made over the region of the extensor extensor mechanism after meticulous hemostasis was obtained and maintained in subcutaneous tissues a medial parapatellar incision was made The patella was subluxed lateralward the medial lateral gutter were cleaned from any hypertrophic synovitis and scar tissue of the distal femoral block was placed and the distal femoral osteotomy cut was made subsequently the chamfers anterior and posterior osteotomy cuts were made utilizing the 4-in-1 block the tibia was subsequently subluxed anteriorward medial and ateral meniscal remnants were excised in their entirety remnants of the anterior and posterior cruciate ligaments were excised in their entirety excellent exposure of the proximal tibia was obtained the tibial osteotomy guide was placed on the proximal tibial osteotomy cut was made once again the knee was irrigated with copious amounts of sterile saline solution the patella was subsequently everted lateralward thickened scar tissue around the patella was removed the patella was subsequently cut utilizing a freehand technique and was drilled prepared for final preparation and placement of patella socially flexion-extension gaps were checked and the equal and symmetric trials were placed to the appropriate femoral and tibial trials with poly-spacer being placed for equal flexion and extension gaps and full range of motion including extension to 0 and flexion to 140 the trial components after having been taken to recovery range of motion was subsequently removed meticulous he mostasis was obtained and maintained subsequently a knee block injection of joint cocktail including ropivacaine 0.5% 150 mg. Bupivacaine 0.5% epinephrine 1-200,030 mL's toradol 30 mg dexamethasone 4 mg ketamine 10 mg clonidine 100 micrograms normal saline solution 30 mg was infiltrated into the soft tissues of the posterior knee medial lateral gutters and periosteal synovium special attention was paid to protect neurovascular structures at all times subsequently trial components having been removed the knee was irrigated with sterile saline solution. debris was removed the proximal tibia was subsequently prepared and was made ready for the placement of the tibial component tibial component was also cemented and tamped into position the femoral component was subsequently placed and cemented in the position the patellar component was subsequently cemented in position because hemostasis once again obtained and maintained wound having been thoroughly irrigated with debridement and debridement lavage was performed as well as a medial parapatellar incision closed with #1 Vicryl in interrupted fashion subcutaneous was closed with #2 Vicryl skin was closed with skin clips. PA-C was necessary for prepping and drapping as well as wound closure of deep fascia Sub cutaneous tissue and skin and was necessary for the case. A sterile compressive dressing was placed patient was taken to recovery in stable condition of report dictated by Shaquille I attest to the content of the Intraoperative Record and any orders documented therein. Any exceptions are noted below. I attest to the content of the Intraoperative Record and any orders documented therein. Any exceptions are noted below.
--- NOTE | 2019-11-09 08:21 | Operative Report ---
Post Operative Report Pre & Post Diagnosis Operation Date: 11/09/19 07:00 Pre-Op Diagnosis: Osteoarthritis of Right Knee Post-Op Diagnosis: Osteoarthritis of Right Knee I identified the patient and participated in the time-out.: Yes Procedure Operation Date: 11/09/19 07:00 Actual Procedures p Right Total Knee Arthroplasty(Right) - Bill Corbin DO Surgeon Bill Corbin DO Print Line Feeder matt [place] Estimated Blood Loss 5 Findings Consistent with Post-Op Diagnosis Specimens Bone and cartilage Description of Procedure After proper prepping and draping of the Right lower extremity anterior midline incision was made over the region of the extensor extensor mechanism after meticulous hemostasis was obtained and maintained in subcutaneous tissues a medial parapatellar incision was made The patella was subluxed lateralward the medial lateral gutter were cleaned from any hypertrophic synovitis and scar tissue of the distal femoral block was placed and the distal femoral osteotomy cut was made subsequently the chamfers anterior and posterior osteotomy cuts were made utilizing the 4-in-1 block the tibia was subsequently subluxed anteriorward medial and ateral meniscal remnants were excised in their entirety remnants of the anterior and posterior cruciate ligaments were excised in their entirety excellent exposure of the proximal tibia was obtained the tibial osteotomy guide was placed on the proximal tibial osteotomy cut was made once again the knee was irrigated with copious amounts of sterile saline solution the patella was subsequently everted lateralward thickened scar tissue around the patella was removed the patella was subsequently cut utilizing a freehand technique and was drilled prepared for final preparation and placement of patella socially flexion-extension gaps were checked and the equal and symmetric trials were placed to the appropriate femoral and tibial trials with poly-spacer being placed for equal flexion and extension gaps and full range of motion including extension to 0 and flexion to 140 the trial components after having been taken to recovery range of motion was subsequently removed meticulous hemostasis was obtained and maintained subsequently a knee block injection of joint cocktail including ropivacaine 0.5% 150 mg. Bupivacaine 0.5% epinephrine 1-200,030 mL's toradol 30 mg dexamethasone 4 mg ketamine 10 mg clonidine 100 micrograms normal saline solution 30 mg was infiltrated into the soft tissues of the posterior knee medial lateral gutters and periosteal synovium special attention was paid to protect neurovascular structures at all times subsequently trial components having been removed the knee was irrigated with sterile saline solution. debris was removed the proximal tibia was subsequently prepared and was made ready for the placement of the tibial component tibial component was also cemented and tamped into position the femoral component was subsequently placed and cemented in the position the patellar component was subsequently cemented in position because hemostasis once again obtained and maintained wound having been thoroughly irrigated with debridement and debridement lavage was performed as well as a medial parapatellar incision closed with #1 Vicryl in interrupted fashion subcutaneous was closed with #2 Vicryl skin was closed with skin clips. PA-C was necessary for prepping and drapping as well as wound closure of deep fascia Sub cutaneous tissue and skin and was necessary for the case. A sterile compressive dressing was placed patient was taken to recovery in stable condition of report dictated by Shaquille I attest to the content of the Intraoperative Record and any orders documented therein. Any exceptions are noted below. I attest to the content of the Intraoperative Record and any orders documented therein. Any exceptions are noted below.
--- NOTE | 2019-11-09 09:38 | Anesthesiology Progress Note ---
Date of Service November 09, 2019 Anesthesia Post Procedure Vital Signs Vital Signs: Temp Pulse Pulse Resp BP Pulse Ox 11/09/19 09:30 36.3 C L 73 10 L 119/75 96 11/09/19 09:20 72 10 L 122/70 99 11/09/19 09:10 68 11 L 115/67 99 11/09/19 09:00 77 17 94/58 L 99 11/09/19 08:53 36.9 C 67 11 L 105/56 L 98 11/09/19 06:07 77 18 147/77 H 93 11/09/19 05:40 36.7 C 89 18 160/70 H 98 Pain Intensity Right Knee: Pain Intensity: 0 Transfer of Care Handoff Completed per policy Notes Mental Status: alert / awake / arousable Patient Amnestic to Procedure: Yes Nausea / Vomiting: adequately controlled Pain: adequately controlled Airway Patency, RR, SpO2: stable & adequate BP & HR: stable & adequate Hydration State: stable & adequate Neuraxial Anesthesia: was administered and sensory block is resolving Anesthetic Complications: no major complications apparent and Pt Satisfied with anesthetic care
--- NOTE | 2019-11-09 10:14 | XRay Report ---
XR knee RT 1 or 2V routine CLINICAL HISTORY: Postoperative evaluation. COMPARISON: None FINDINGS: Alignment of the total right knee arthroplasty is anatomic. There is no fracture or unexpe cted radiopaque foreign body. Surgical drains are in place. IMPRESSION: Expected findings following total right knee arthroplasty. ACT 112: Negative or not required by law. Electronically signed by: Medardo Diaz M.D. 11/09/2019 10:13 AM
[2019-11-09] MEDS ORDERED: METOCLOPRAMIDE HCL INJ 5 MG/ML 2 ML VIAL IV PRN (10:28)
[2019-11-09] MEDS ORDERED: MAGNESIUM HYDROXIDE SUSP 30 ML UDC PO PRN (10:28)
[2019-11-09] MEDS ORDERED: CALCIUM CARBONATE 500 MG CHEWABLE TAB PO PRN (10:28)
[2019-11-09] MEDS ORDERED: NALOXONE HCL 0.4 MG/1 ML VIAL/CARP IV PRN (10:28)
[2019-11-09] MEDS ORDERED: bisacodyL 10 MG SUPP PR PRN (10:28)
[2019-11-09] MEDS ORDERED: HYDROmorphone INJ 0.5 MG/0.5 ML SYR IV PRN (10:28)
[2019-11-09] MEDS: SODIUM CHLORIDE 0.9% 1000ML 1,000 ML IV SCH ×2 (10:56→19:51)
[2019-11-09] MEDS: AMLODIPINE BESYLATE 5 MG TAB PO SCH (12:35)
[2019-11-09] MEDS: MULTIVITAMIN TAB PO SCH (12:35)
[2019-11-09] MEDS: TIMOLOL MALEATE 0.5% OP SOLN 5 ML BTL OP SCH (12:35)
[2019-11-09] MEDS: ASPIRIN 81 MG ECTAB PO SCH ×2 (12:35→19:52)
[2019-11-09] MEDS: PSYLLIUM 58.6% POWDER PACKET PO SCH (12:35)
[2019-11-09] MEDS: CHOLECALCIFEROL 1,000 UNITS 25 MCG TAB PO SCH (12:35)
[2019-11-09] MEDS: DOCUSATE SODIUM 100 MG CAP PO SCH ×2 (12:35→19:54)
[2019-11-09] MEDS: KETOROLAC TROMETHAMINE 15 MG/ML VIAL IV SCH ×2 (12:36→17:16)
[2019-11-09] MEDS: ACETAMINOPHEN 500 MG TAB PO SCH ×2 (13:44→21:57)
[2019-11-09] MEDS: CLINDAMYCIN 600 MG in DEXTROSE 5% 50 ML IV SCH ×2 (15:39→21:56)
[2019-11-09] MEDS: RHOPRESSA OP SCH (19:49)
[2019-11-09] MEDS: SENNA 8.6 MG TAB PO SCH (19:52)
[2019-11-09] MEDS: ARTIFICIAL TEARS OP SCH (19:53)
[2019-11-09] MEDS: BIMATOPROST 0.01% OP SOLN 2.5 ML BTL OP SCH (21:56)
[2019-11-10] MEDS: KETOROLAC TROMETHAMINE 15 MG/ML VIAL IV SCH ×2 (00:08→05:52)
[2019-11-10 05:40] LABS: Hematocrit (blood only) 34.6 % (37-47); Hemoglobin 11.1 g/dL (12.0-16.0); Mean Corpuscular Hemoglobin 27.8 pg (25-34); Mean Corpuscular Hgb Conc 32.1 g/dL (32-36); Mean Corpuscular Volume 86.5 fL (80-100); Mean Platelet Volume 9.6 fL (7.4-10.4); Platelet Count 207 K/uL (130-400); RDW Coefficient of Variation 13.6 % (11.5-14.5); RDW Standard Deviation 43.4 fL (36.4-46.3); White Blood Count 14.95 K/uL (4.8-10.8)
[2019-11-10] MEDS: ACETAMINOPHEN 500 MG TAB PO SCH ×3 (05:51→21:11)
[2019-11-10] MEDS: TIMOLOL MALEATE 0.5% OP SOLN 5 ML BTL OP SCH (05:55)
[2019-11-10 06:23] LABS: BUN Creatinine Ratio 20.2 (10-20); Calcium 8.5 mg/dl (8.5-10.1); Creatinine Clr Calc Pharmacy 48.8 ml/min; Est GFR (African American) 82.6; Est GFR (Non-African American) 71.3; Potassium 3.7 mmol/L (3.5-5.1)
--- NOTE | 2019-11-10 07:09 | Orthopedic Progress Note ---
Date of Service November 10, 2019 Assessment & Plan (1) History of total right knee replacement: POD #1 s/p Right TKA pt/ot dvt proph with FIFI/SCD/ASA plan for d/c home with HHPT when stable Admission and Anticipated Discharge Date Admission Date: November 09, 2019 Subjective POD #1 s/p Right TKA Review of Systems Constitutional: no fever, no chills and no sweats Respiratory: no cough and no dyspnea Cardiovascular: no chest pain and no dyspnea Gastrointestinal: no abdominal pain, no nausea and no vomiting Physical Exam Physical Exam: Vital Signs Temp 37.1 C 11/10/19 03:51 Pulse 75 11/10/19 03:51 Resp 16 11/10/19 03:51 BP 125/69 11/10/19 03:51 Pulse Ox 95 11/10/19 03:51 Intake & Output 11/09/19 11/10/19 11/10/19 18:59 06:59 18:59 Intake Total 2288 / 4264 1976 / 4264 Output Total 100 / 1150 1050 / 1150 Balance 2188 / 3114 926 / 3114 Weight 65.346 kg Intake: IV 1688 / 2742 1054 / 2742 Cleocin 600 mg In D5w 50 ml @ 54 / 108 54 / 108 100 mls/hr IV Q8H [facility] Rx#: [id number] CLEOCIN 600 mg In 54 ml @ 100 54 / 54 mls/hr IV PREO P [facility] Rx#: [id number] Lr 1,000 ml @ 15 mls/hr IV . 700 / 700 Q24H COUNTS INCLUDE 234 BEDS AT THE [facility] Rx#:[id number] Nss 1000ML 1,0 00 ml @ 100 mls/ 680 / 1680 1000 / 1680 hr IV .Q10H SC H Rx#:[id number] TRANEXAMIC ACI D / 0.7% NACL 1, 200 / 200 000 mg In 100 ml @ 600 mls/hr IV TODAY@0600 COUNTS INCLUDE 234 BEDS AT THE [facility] Rx#:[id number] IV Perioperative 600 / 600 Oral 922 / 922 Output: Urine 900 / 900 Estimated Blood Loss 5 / 5 Drain Output 95 / 245 150 / 245 Right Knee Hem ovac 95 / 245 150 / 245 Constitutional: WD/WN, vitals as above no acute distress Musculoskeletal: Right Leg: NVDI, calf SNT, negative tina sign. DP palpable, able to wiggle toes/ankle movement without difficulty. dressing clean dry and intact. Results & Data ([facility]) Vital Signs (Past 12 Hours) Vital Signs Temp Pulse Resp BP Pulse Ox 11/10/19 03:51 37.1 C 75 16 125/69 95 11/09/19 22:55 36.6 C 80 16 112/60 93 11/09/19 20:00 36.5 C 74 18 115/62 95 Laboratory Results PT 11.7 Seconds (9.0-12.0) 10/12/19 10:37 APTT 30.5 Seconds (21.0-31.0) 10/12/19 10:37 Laboratory Results WBC 14.95 K/uL (4.8-10.8) H 11/10/19 05:14 RBC 4.00 M/uL (4.2-5.4) L 11/10/19 05:14 Hgb 11.1 g/dL (12.0-16.0) L 11/10/19 05:14 Hct 34.6 % (37-47) L 11/10/19 05:14 MCV 86.5 fL (80-100) 11/10/19 05:14 MCH 27.8 pg (25-34) 11/10/19 05:14 MCHC 32.1 g/dL (32-36) 11/10/19 05:14 RDW Std Deviation 43.4 fL (36.4-46.3) 11/10/19 05:14 RDW Coeff of Arnav 13.6 % (11.5-14.5) 11/10/19 05:14 Plt Count 207 K/uL (130-400) 11/10/19 05:14 MPV 9.6 fL (7.4-10.4) 11/10/19 05:14 Immature Gran % (Auto) 0.1 % 10/12/19 10:37 Neut % (Auto) 68.0 % 10/12/19 10:37 Lymph % (Auto) 18.6 % 10/12/19 10:37 [place] % (Auto) 9.4 % 10/12/19 10:37 Eos % (Auto) 3.5 % 10/12/19 10:37 Baso % (Auto) 0.4 % 10/12/19 10:37 Immature Gran # (Auto) 0.01 K/uL (0.00-0.02) 10/12/19 10:37 Neut # (Auto) 4.61 K/uL (1.4-6.5) 10/12/19 10:37 Lymph # (Auto) 1.26 K/uL (1.2-3.4) 10/12/19 10:37 [place] # (Auto) 0.64 K/uL (0.11-0.59) H 10/12/19 10:37 Eos # (Auto) 0.24 K/uL (0-0.5) 10/12/19 10:37 Baso # (Auto) 0.03 K/uL (0-0.2) 10/12/19 10:37 PT 11.7 Seconds (9.0-12.0) 10/12/19 10:37 INR 1.1 (0.9-1.1) 10/12/19 10:37 APTT 30.5 Seconds (21.0-31.0) 10/12/19 10:37 PTT Ratio 1.1 10/12/19 10:37 Sodium 143 mmol/L (136-145) 11/10/19 05:14 Potassium 3.7 mmol/L (3.5-5.1) 11/10/19 05:14 Chloride 111 mmol/L (98-107) H 11/10/19 05:14 Carbon Dioxide 27 mmol/L (21-32) 11/10/19 05:14 Anion Gap 5.0 (3-11) 11/10/19 05:14 BUN 16 mg/dl (7-18) 11/10/19 05:14 Creatinine 0.78 mg/dl (0.6-1.2) 11/10/19 05:14 Est Cr Clr Drug Dosing 48.8 ml/min 11/10/19 05:14 Est GFR ( Amer) 82.6 11/10/19 05:14 Est GFR (Non-Af Amer) 71.3 11/10/19 05:14 BUN/Creatinine Ratio 20.2 (10-20) H 11/10/19 05:14 Glucose 104 mg/dl (70-99) H 11/10/19 05:14 Estimat Average Glucose 123 mg/dl 10/12/19 10:45 Hemoglobin A1c 5.9 % (4.5-5.6) H 10/12/19 10:45 Calcium 8.5 mg/dl (8.5-10.1) 11/10/19 05:14 Albumin 4.0 gm/dl (3.4-5.0) 10/12/19 10:37 Urine Color Yellow 10/12/19 10:37 Urine Appearance Clear (Clear) 10/12/19 10:37 Urine pH 7.0 (4.5-7.5) 10/12/19 10:37 Ur Specific [place] 1.016 (1.000-1.030) 10/12/19 10:37 Urine Protein Negative (Negative) 10/12/19 10:37 Urine Glucose (UA) Negative (Negative) 10/12/19 10:37 Urine Ketones Negative (Negative) 10/12/19 10:37 Urine Blood Negative (Negative) 10/12/19 10:37 Urine Nitrite Negative (Negative) 10/12/19 10:37 Urine Bilirubin Negative (Negative) 10/12/19 10:37 Urine Urobilinogen Negative (Negative) 10/12/19 10:37 Ur Leukocyte Esterase Trace (Negative) H 10/12/19 10:37 Urine WBC (Auto) 1-5 /hpf (0-5) 10/12/19 10:37 Urine RBC (Auto) 0-4 /hpf (0-4) 10/12/19 10:37 U Hyaline Cast (Auto) 1-5 /lpf (0-5) 10/12/19 10:37 U Epithel Cells (Auto) 5-10 /lpf (0-5) H 10/12/19 10:37 Urine Bacteria (Auto) Negative (Negative) 10/12/19 10:37 Blood Type A Positive 10/12/19 10:39 Antibody Screen NEGATIVE 10/12/19 10:39 Diagnostic Findings XR knee RT 1 or 2V routine CLINICAL HISTORY: Postoperative evaluation. COMPARISON: None FINDINGS: Alignment of the total right knee arthroplasty is anatomic. There is no fracture or unexpected radiopaque foreign body. Surgical drains are in place. IMPRESSION: Expected findings following total right knee arthroplasty.
[2019-11-10] MEDS: ASPIRIN 81 MG ECTAB PO SCH ×2 (08:41→20:29)
[2019-11-10] MEDS: PSYLLIUM 58.6% POWDER PACKET PO SCH (08:41)
[2019-11-10] MEDS: AMLODIPINE BESYLATE 5 MG TAB PO SCH (08:41)
[2019-11-10] MEDS: DOCUSATE SODIUM 100 MG CAP PO SCH ×2 (08:42→20:30)
[2019-11-10] MEDS: MULTIVITAMIN TAB PO SCH (08:42)
[2019-11-10] MEDS: CHOLECALCIFEROL 1,000 UNITS 25 MCG TAB PO SCH (08:42)
[2019-11-10] MEDS: CeleBREX 200 MG CAP PO SCH ×2 (12:04→20:28)
[2019-11-10] MEDS: OXYCODONE HCL IR 5 MG TAB (IMMEDIATE RELEASE) PO PRN (19:35)
[2019-11-10] MEDS: BIMATOPROST 0.01% OP SOLN 2.5 ML BTL OP SCH (20:29)
[2019-11-10] MEDS: RHOPRESSA OP SCH (20:35)
[2019-11-10] MEDS: ARTIFICIAL TEARS OP SCH (20:39)
[2019-11-10] MEDS: SENNA 8.6 MG TAB PO SCH (21:09)
[2019-11-11] MEDS: ACETAMINOPHEN 500 MG TAB PO SCH ×2 (05:43→13:56)
[2019-11-11] MEDS: TIMOLOL MALEATE 0.5% OP SOLN 5 ML BTL OP SCH (06:16)
[2019-11-11] MEDS: ASPIRIN 81 MG ECTAB PO SCH (09:10)
[2019-11-11] MEDS: CeleBREX 200 MG CAP PO SCH (09:10)
[2019-11-11] MEDS: CHOLECALCIFEROL 1,000 UNITS 25 MCG TAB PO SCH (09:10)
[2019-11-11] MEDS: MULTIVITAMIN TAB PO SCH (09:10)
[2019-11-11] MEDS: PSYLLIUM 58.6% POWDER PACKET PO SCH (09:10)
[2019-11-11] MEDS: DOCUSATE SODIUM 100 MG CAP PO SCH (09:10)
[2019-11-11] MEDS: AMLODIPINE BESYLATE 5 MG TAB PO SCH (09:10)
[2019-11-11] MEDS: OXYCODONE HCL IR 5 MG TAB (IMMEDIATE RELEASE) PO PRN (12:10)
--- NOTE | 2019-11-11 12:48 | Orthopedic Progress Note ---
Date of Service November 11, 2019 Assessment & Plan (1) History of total right knee replacement: POD #2 s/p Right TKA pt/ot dvt proph with FIFI/SCD/ASA plan for d/c home with HHPT today Admission and Anticipated Discharge Date Admission Date: November 09, 2019 Subjective POD #2 s/p Right TKA Pain is controlled. States the pain is a little more than her knee replacement last year but doing well today. Denies CP, SOB, LH. Wants to go home today. Physical Exam Constitutional: WD/WN, vitals as above Musculoskeletal: Knee: + surgical incision (Right knee: Dermabond Prineo in place. Well approximated incision. ); knee normal to inspection, no skin erythema, no ecchymosis and no crepitation with knee ROM Skin: no rashes, warm and dry Neurologic: normal touch/pain/proprioception Dorsiflexion of right ankle intact. Psychiatric: A+Ox3, euthymic affect Speech: normal rate/rhythm/volume of speech Results & Data ([facility]) Vital Signs (Past 12 Hours) Vital Signs Temp Pulse Resp BP Pulse Ox 11/11/19 07:14 36.8 C 74 16 158/73 H 97
--- NOTE | 2019-11-13 19:34 | Discharge Summary ---
Date of Service date of discharge: November 11, 2019 date of admission: 11-09-19 Admission HPI Per Admitting Provider Ashlyn is a 79 year old who complains of right knee pain, presents for pre-op evaluation prior to a Right total knee replacement by dr Corbin at [facility]. she complains of pain, crepitus, decreased range of motion, instability and stiffness in her right knee. she states that the symptoms have been chronic and non-traumatic. her symptoms occur constantly with intermittent worsening. Currently the patient states that the symptoms are moderate-severe. The pain is described as aching, sharp and throbbing. The symptoms occur continuously. The symptoms are aggravated by ascending stairs, daily activities, first steps while awake walking. Prior NSAIDs include IBU and Aleve. she has had previous visco injections in the past without much relief. she previously had left TKA and recovered well Principal Diagnosis Right knee arthritis Discharge Exam Vital Signs Temp 36.8 C 11/11/19 14:01 Pulse 74 11/11/19 14:01 Resp 16 11/11/19 14:01 BP 158/73 H 11/11/19 14:01 Pulse Ox 97 11/11/19 14:01 Constitutional WD/WN, vitals as above no acute distress Musculoskeletal right knee: NVDI, calf SNT, negative tina sign. DP palpable, able to wiggle toes/ankle movement without difficulty. Prineo dressing clean dry and intact. expected post-operative bruising noted. Discharge Data Allergies Allergy/AdvReac Type Severity Reaction Status Date / Time latex Allergy Unknown RASH Verified 11/09/19 05:34 Penicillins Allergy Unknown RASH Verified 11/09/19 05:34 Corticosteroids AdvReac Unknown evelates Verified 11/09/19 05:34 (Glucocorticoids) eye pressure omeprazole [From Prilosec] AdvReac Unknown tongue Verified 11/09/19 05:34 felt burned Consultations 11/09/19 10:28 Consult Case Management - Discharge Planning Routine Procedures Performed Operation Date: 11/09/19 07:00 Actual Procedures p Right Total Knee Arthroplasty(Right) - Bill Corbin DO Ordered Studies 11/09/19 05:00 US - OR guided needle placemen Routine Hospital Course (1) History of total right knee replacement: POD #2 s/p Right TKA pt/ot dvt proph with FIFI/SCD/ASA plan for d/c home with HHPT Laboratory Results WBC 14.95 K/uL (4.8-10.8) H 11/10/19 05:14 RBC 4.00 M/uL (4.2-5.4) L 11/10/19 05:14 Hgb 11.1 g/dL (12.0-16.0) L 11/10/19 05:14 Hct 34.6 % (37-47) L 11/10/19 05:14 MCV 86.5 fL (80-100) 11/10/19 05:14 MCH 27.8 pg (25-34) 11/10/19 05:14 MCHC 32.1 g/dL (32-36) 11/10/19 05:14 RDW Std Deviation 43.4 fL (36.4-46.3) 11/10/19 05:14 RDW Coeff of Arnav 13.6 % (11.5-14.5) 11/10/19 05:14 Plt Count 207 K/uL (130-400) 11/10/19 05:14 MPV 9.6 fL (7.4-10.4) 11/10/19 05:14 Immature Gran % (Auto) 0.1 % 10/12/19 10:37 Neut % (Auto) 68.0 % 10/12/19 10:37 Lymph % (Auto) 18.6 % 10/12/19 10:37 [place] % (Auto) 9.4 % 10/12/19 10:37 Eos % (Auto) 3.5 % 10/12/19 10:37 Baso % (Auto) 0.4 % 10/12/19 10:37 Immature Gran # (Auto) 0.01 K/uL (0.00-0.02) 10/12/19 10:37 Neut # (Auto) 4.61 K/uL (1.4-6.5) 10/12/19 10:37 Lymph # (Auto) 1.26 K/uL (1.2-3.4) 10/12/19 10:37 [place] # (Auto) 0.64 K/uL (0.11-0.59) H 10/12/19 10:37 Eos # (Auto) 0.24 K/uL (0-0.5) 10/12/19 10:37 Baso # (Auto) 0.03 K/uL (0-0.2) 10/12/19 10:37 PT 11.7 Seconds (9.0-12.0) 10/12/19 10:37 INR 1.1 (0.9-1.1) 10/12/19 10:37 APTT 30.5 Seconds (21.0-31.0) 10/12/19 10:37 PTT Ratio 1.1 10/12/19 10:37 Sodium 143 mmol/L (136-145) 11/10/19 05:14 Potassium 3.7 mmol/L (3.5-5.1) 11/10/19 05:14 Chloride 111 mmol/L (98-107) H 11/10/19 05:14 Carbon Dioxide 27 mmol/L (21-32) 11/10/19 05:14 Anion Gap 5.0 (3-11) 11/10/19 05:14 BUN 16 mg/dl (7-18) 11/10/19 05:14 Creatinine 0.78 mg/dl (0.6-1.2) 11/10/19 05:14 Est Cr Clr Drug Dosing 48.8 ml/min 11/10/19 05:14 Est GFR ( Amer) 82.6 11/10/19 05:14 Est GFR (Non-Af Amer) 71.3 11/10/19 05:14 BUN/Creatinine Ratio 20.2 (10-20) H 11/10/19 05:14 Glucose 104 mg/dl (70-99) H 11/10/19 05:14 Estimat Average Glucose 123 mg/dl 10/12/19 10:45 Hemoglobin A1c 5.9 % (4.5-5.6) H 10/12/19 10:45 Calcium 8.5 mg/dl (8.5-10.1) 11/10/19 05:14 Albumin 4.0 gm/dl (3.4-5.0) 10/12/19 10:37 Urine Color Yellow 10/12/19 10:37 Urine Appearance Clear (Clear) 10/12/19 10:37 Urine pH 7.0 (4.5-7.5) 10/12/19 10:37 Ur Specific [place] 1.016 (1.000-1.030) 10/12/19 10:37 Urine Protein Negative (Negative) 10/12/19 10:37 Urine Glucose (UA) Negative (Negative) 10/12/19 10:37 Urine Ketones Negative (Negative) 10/12/19 10:37 Urine Blood Negative (Negative) 10/12/19 10:37 Urine Nitrite Negative (Negative) 10/12/19 10:37 Urine Bilirubin Negative (Negative) 10/12/19 10:37 Urine Urobilinogen Negative (Negative) 10/12/19 10:37 Ur Leukocyte Esterase Trace (Negative) H 10/12/19 10:37 Urine WBC (Auto) 1-5 /hpf (0-5) 10/12/19 10:37 Urine RBC (Auto) 0-4 /hpf (0-4) 10/12/19 10:37 U Hyaline Cast (Auto) 1-5 /lpf (0-5) 10/12/19 10:37 U Epithel Cells (Auto) 5-10 /lpf (0-5) H 10/12/19 10:37 Urine Bacteria (Auto) Negative (Negative) 10/12/19 10:37 Blood Type A Positive 10/12/19 10:39 Antibody Screen NEGATIVE 10/12/19 10:39 Total Time Total Time Spent Total Time Spent (In Minutes): 20 Total Time Includes: Examination of the Patient, Discharge Planning and Medication Reconciliation Discharge Plan Discharge Items Patient Disposition: Home - Home Health Services Reason For Visit: Osteoarthritis of Right Knee Discharge Diagnosis: Right Total knee Replacement Activity: Per Instructions section Lifting: Wait until after follow-up appointment Weightbearing Comment: WBAT with walker Non-emergency contact: Surgeon Call non-emergency contact if: you have any medication questions, you have a fever, your temperature is above 101, your wound has increased drainage and your wound pain has increased Follow-up/Referrals: Dash Fernández [Primary Care Provider] - Diet: Regular Addtl Attending Provider Instructions: ACTIVITY RECOMMENDATIONS: SELF CARE INSTRUCTIONS AFTER TOTAL KNEE REPLACEMENT A. You may need to continue a physical therapy program after discharge from the hospital. There are several options available to you. Your doctor will assist you in selecting the best one for you. 1. An out-patient facility 2 to 3 times a week for therapy or home therapy. 2. Continue working on all exercises taught to you in the hospital. Your goals should be to increase bending of your knee to 90 degrees and beyond and to fully straighten your knee. B. You may progress at your own pace from walking with a walker or crutches to a cane; then to no assistive devices. C. Make walking a part of your daily routine. Be up as much as comfortable with rest periods throughout the day. Rest with leg elevation is very important. Use the ice wrap frequently for the first 3-4 weeks. D. There are no restrictions on activities. You may ride in a car, shop, participate in collections agent and all social activities. E. Wear the long elastic stockings (FIFI hose) 20 hours a day for 2 weeks after surgery. They can be removed several times a day for laundering and for a bath. F. You may shower, no tub baths until cleared by your doctor. SPECIAL CARE INSTRUCTIONS: VERY IMPORTANT TO READ AND REVIEW A. There are a few signs you need to watch for after you are home. Call [facility] if you notice any of the followin. Increased severe knee pain. Some pain is expected especially when you exercise. 2. Increased swelling in your leg or knee; pain or swelling of the calf muscle in either lower leg. 3. Any fluid drainage from the incision. 4. Shortness of breath or chest pain. B. Please call [facility] at if you have any concerns or questions about your operation or recovery. The doctor or his nurse will return your call promptly. C. You must take antibiotics before dental work, bladder, bowel or other surgery. Your doctor will provide you with a permanent care to carry describing this precaution. IMPORTANT: * REMEMBER TO TAKE ASPIRIN, 81 MG, TWICE DAILY FOR 4 WEEKS UNLESS OTHERWISE DIRECTED. THIS IS YOUR BLOOD THINNER. * HIGH RISK PATIENTS MAY BE PRESCRIBED A STRONGER BLOOD THINNER. THIS WILL BE PROVIDED AT DISCHARGE. * CALL IF INCREASED PAIN, REDNESS, DRAINAGE OR FEVER GREATER THAT 101. * WEAR FIFI HOSE 20 HOURS PER DAY FOR 2 WEEKS. * DERMABOND Prineo- This is a mesh tape dressing that is covered with glue. It should remain in place until the incision is properly healed, usually 10-14 days. This dressing is designed to naturally slough off. You may trim the excess mesh tape as it peels off. Incision may be briefly wet in a shower. Dry immediately by blotting with a clean, dry towel. Do not bath or swim until instructed by your doctor. Do not scratch, rub, or pick at the dressing. Do not apply any topical ointments or lotions until dressing is completely removed and/or instructed by your doctor. There may be a small piece of suture material at one end of your incision. Do not pull or trim this. If it is bothersome or catching on clothing, you may cover it with a band-aid. IF INCISION IS LEAKING THROUGH DRESSING, CALL THE OFFICE . FOLLOW UP VISIT: If appointment is not already scheduled: Please call [facility] to make a follow-up appointment for 2 weeks after your surgery at . Pending Studies at Discharge: No Stand-Alone Forms: My [facility] My Own Med, Smoking Cessation Medications and DC Order Prescriptions: New sennosides [Senokot] 8.6 mg Tablet 17.2 mg PO HS Qty: 30 RF: 0 aspirin 81 mg Tablet,Delayed Release (Dr/Ec) 81 mg PO BID 30 Days Qty: 60 RF: 0 acetaminophen 500 mg Tablet 1,000 mg PO Q8 14 Days Qty: 84 RF: 0 Continued calcium carbonate [Tums] 200 mg calcium (500 mg) Tablet,Chewable 200 mg PO UD PRN (Reason: GERD) RF: 0 amlodipine 10 mg Tablet 10 mg PO QAM RF: 0 timolol 0.5 % Drops 1 drp OPHTHALMIC (EYE) QAM RF: 0 Benefiber Clear SF (dextrin) 3 gram/3.5 gram Powder In Packet 1 packet PO QAM RF: 0 Lumigan 0.01 % Drops 1 drp OPHTHALMIC (EYE) HS RF: 0 Rhopressa 0.02 % Drops 1 drp OPHTHALMIC (EYE) PM RF: 0 Refresh Classic (PF) 1.4-0.6 % Dropperette 1 drp OPHTHALMIC (EYE) HS RF: 0 cholecalciferol (vitamin D3) [Vitamin D3] 25 mcg (1,000 unit) Tablet 25 mcg PO QAM RF: 0 Discharge Orders: Discharge Order (Routine); Ordered 11/11/19 Ordered By: Ruben Friend/Other Patient Handouts: DVT Post Op Prevention Admission Data Admit Date/Time: 11/09/19 08:59 Attending Provider: Bill Corbin Admit Provider: Bill Corbin Primary Care Provider: Dash Fernández Other Providers: [facility],Home Health Other Interventions: Discharge Summary Assessment (RN) Last Done: 11/11/19 14:01 DC Date/Time DO NOT enter until pt leaves facility: 11/11/19 14:45
== END 2019-11-11 14:45 | disposition home health service (06) | DRG 470 ==
LOC: ASU 05:09 → 3W 08:59